=== PATIENT | female | born 1960 | race Caucasian/White ===

== ENCOUNTER 2017-07-07 12:30 | Inpatient (IN) ==
--- OUTSIDE RECORDS SUMMARY | 2017-07-07 14:17 | External Medical Summary | Continuity of Care Document ---
:1960 Author Organization [facility] Care Team Providers Name Role Phone Boone Chowdhury Unavailable Unavailable Insurance Providers Payer Name Policy Number Subscriber Name Relationship [facility] [id number] Zoila Ortiz 16 Self / Same As Patient Advance Directives Directive Response Recorded Date/Time Advanced Directives No 12/15/16 4:34pm Problems Active Problems Medical Problem Onset Date Status Abscessed tooth Unknown Acute Acute respiratory distress 12/07/2014 Acute Bradycardia Unknown Acute Chest pain Unknown Acute DKA (diabetic ketoacidoses) Unknown Acute Diabetes mellitus type 2, uncontrolled Unknown Acute Diabetes mellitus, type 2 12/07/2014 Acute Hyperglycemia 12/07/2014 Acute Hypertension Unknown Acute Hypokalemia 12/07/2014 Acute Hyponatremia 12/07/2014 Acute Hypoxia ~12/07/2014 Acute Influenza B ~12/06/2014 Acute Skin infection Unknown Acute Thyroid nodule Unknown Acute Medications Current Home Medications Medication Dose Units Route Directions Days/Qty Instructions Start Date Multivitamin 1 1 Tab ORAL Daily 09/29/16 Each Insulin Human 15 Unit SUBCUTANEOUS Twice Daily 1 10/06/16 Isoph/Insulin Before Meals Regular (Insulin Humulin 70/30) 100 Unit/1 Ml Amitriptyline Hcl 10 Mg ORAL Bedtime 11/15/16 10 Mg Aspirin 81 Mg 81 Mg ORAL Daily 11/15/16 Citalopram 40 Mg ORAL Daily 11/15/16 Hydrobromide 40 Mg Gabapentin 300 Mg ORAL Daily 11/15/16 (Neurontin) 300 Mg Triamterene/[place] 1 Cap ORAL Daily 11/15/16 chlorothiazid (Maxzide 37.5 Mg-25 Mg) 1 Each Metformin Hcl 500 Mg ORAL Daily 11/15/16 (Glucophage) 500 Mg Metoprolol 50 Mg ORAL Twice A Day 11/15/16 Tartrate (Lopressor) 50 Mg Trazodone Hcl 100 75 Mg ORAL Bedtime 11/15/16 Mg Empagliflozin 10 10 Mg ORAL Daily 11/26/16 Mg Lisinopril 30 Mg 30 Mg ORAL Twice A Day 11/26/16 Cephalexin 500 Mg 500 Mg ORAL Three Times A 21 12/06/16 Day Empagliflozin 25 25 Mg ORAL Daily 12/15/16 Mg Hydralazine Hcl 25 Mg ORAL Four Times 12/15/16 25 Mg Daily Pantoprazole 40 Mg ORAL As Directed 12/15/16 Sodium (Protonix) 40 Mg Amlodipine 10 Mg ORAL As Directed 12/15/16 Besylate 10 Mg Past Home Medications Medication Directions Ordered Status Metformin Hcl (Glucophage) 1,000 Mg Twice A Day 12/07/14 Discontinued Tablet, 1000 Mg Oral Ranitidine Hcl 300 Mg Tablet, 300 Daily for Reflux 12/07/14 Discontinued Mg Oral Metoprolol Tartrate 100 Mg Tablet, Twice A Day for Hypertension 12/07/14 Discontinued 100 Mg Oral [Insulin] , for Diabetic 12/07/14 Discontinued [Multivitamin] , 12/07/14 Discontinued Multivitamin 1 Each Tablet, 1 Each Daily 12/07/14 Discontinued Oral Insulin Human Isoph/Insulin Regular Twice A Day With Meals 12/09/14 Discontinued 100 Unit/1 Ml Vial, 30 Unit Subcutaneous Citalopram Hydrobromide (Celexa) 40 Daily 12/09/14 Discontinued Mg Tablet, 40 Mg Oral Amitriptyline Hcl 100 Mg Tablet, Bedtime 12/09/14 Discontinued 100 Mg Oral Hydrochlorothiazide 50 Mg Tablet, Daily 12/09/14 Discontinued 50 Mg Oral Acetaminophen (Tylenol) 325 Mg Tab, Every 6 Hours as needed for 12/10/14 Discontinued 650 Mg Oral Pain Ibuprofen (Motrin) 200 Mg Tablet, Every 6 Hours as needed for 12/10/14 Discontinued 600 Mg Oral Pain Oseltamivir Phosphate 75 Mg Cap, 75 Twice A Day 12/10/14 Discontinued Mg Oral Cephalexin 500 Mg Capsule, 500 Mg Three Times A Day 11/02/15 Discontinued Oral Hydrocodone Bit/Acetaminophen 1 Four Times Daily as needed 11/02/15 Discontinued Each Tablet, 1 Each Oral for Severe Pain Lisinopril (Zestril) 20 Mg Tablet, Daily 10/06/16 Discontinued 20 Mg Oral Ibuprofen (Motrin) 200 Mg Tablet, Three Times A Day as needed 10/06/16 Discontinued 600 Mg Oral for Pain Hydrocodone Bit/Acetaminophen 1 Every 6 Hours as needed for 10/06/16 Discontinued Each Tablet, 1 Each Oral Pain Canagliflozin 100 Mg Tablet, 100 Mg Daily 11/15/16 Discontinued Oral Social History Social History Problem Response Recorded Date/Time Onset Date Status Exposure to occupational hazards Yes 11/15/2016 5:01pm Query Response Start Date Stop Date Smoking Status Never smoker Hospital Discharge Instructions Current inpatient/outpatient. Discharge instructions are currently unavailable. Plan of Care Prescriptions Functional Status No functional status results. Allergies, Adverse Reactions, Alerts Allergen Type Severity Reaction Status Last Updated Penicillin Adverse Reaction Intermediate Active 09/28/16 Morphine Allergy Intermediate Active 09/28/16 Erythromycin base Adverse Reaction Intermediate Active 09/28/16 influenza virus vaccine, Adverse Reaction Intermediate Active 09/28/16 specific tuberculin, purified Allergy Mild Rash Active 09/28/16 protein deriva TEGADERM Adverse Reaction Intermediate Active 12/07/14 Immunizations No immunization records. Vital Signs Acute Vital Signs Vital Response Date/Time Temperature (Fahrenheit) 97.9 12/15/2016 4:34pm Pulse 75 bpm 12/15/2016 6:34pm Respirations 18 12/15/2016 6:34pm Results Laboratory Results Test Name Result Units Flags Reference Collection Result Comments Date/Time Date/Time White Blood Count 10.22 10^3uL 4.0-11.0 11/16/2016 11/16/2016 5:55am 6:06am Red Blood Count 4.62 10^6uL 4.00-5.00 11/16/2016 11/16/2016 5:55am 6:06am Hemoglobin 14.2 g/dL 12.0-15.5 11/16/2016 11/16/2016 5:55am 6:06am Hematocrit 41.00 % 35.00-45.00 11/16/2016 11/16/2016 5:55am 6:06am Mean Corpuscular 89 FL 80-100 11/16/2016 11/16/2016 Volume 5:55am 6:06am Mean Corpuscular 30.7 PG 26.0-34.0 11/16/2016 11/16/2016 Hemoglobin 5:55am 6:06am Mean Corpuscular 34.6 g/dL 31.0-37.0 11/16/2016 11/16/2016 Hemoglobin Concent 5:55am 6:06am Red Cell 13.1 % 11.8-15.6 11/16/2016 11/16/2016 Distribution Width 5:55am 6:06am Platelet Count 285 10^3uL 150-450 11/16/2016 11/16/2016 5:55am 6:06am Mean Platelet 9.4 FL 6.0-9.5 11/16/2016 11/16/2016 Volume 5:55am 6:06am Neutrophils (%) 52 % 51-67 11/16/2016 11/16/2016 (Auto) 5:55am 6:06am Lymphocytes (%) 32 % 20-46 11/16/2016 11/16/2016 (Auto) 5:55am 6:06am Monocytes (%) 9 % 3-11 11/16/2016 11/16/2016 (Auto) 5:55am 6:06am Eosinophils (%) 7 % H 0-4 11/16/2016 11/16/2016 (Auto) 5:55am 6:06am Basophils (%) 1 % 0-2 11/16/2016 11/16/2016 (Auto) 5:55am 6:06am Neutrophils # 5.3 X10^3 11/16/2016 11/16/2016 (Auto) 5:55am 6:06am Lymphocytes # 3.3 X10^3 11/16/2016 11/16/2016 (Auto) 5:55am 6:06am Monocytes # (Auto) 0.9 X10^3 11/16/2016 11/16/2016 5:55am 6:06am Eosinophils # 0.7 10^3uL 11/16/2016 11/16/2016 (Auto) 5:55am 6:06am Basophils # (Auto) 0.1 10^3uL 11/16/2016 11/16/2016 5:55am 6:06am Prothrombin Time 10.2 SEC 10.0-12.5 11/15/2016 11/15/2016 3:10pm 3:36pm Prothromb Time 0.9 0.8-1.4 11/15/2016 11/15/2016 International Ratio 3:10pm 3:36pm Activated Partial 30.3 SEC 26.3-36.8 11/15/2016 11/15/2016 Thromboplast Time 3:10pm 3:36pm D-Dimer < 215 ng/mL 0-500 11/15/2016 11/15/2016 3:10pm 3:36pm Sodium Level 137 mmol/L 135-150 11/16/2016 11/16/2016 5:55am 6:37am Potassium Level 4.8 mmol/L 3.5-5.1 11/16/2016 11/16/2016 5:55am 6:37am Chloride Level 104 mmol/L 98-108 11/16/2016 11/16/2016 5:55am 6:37am Carbon Dioxide 29 mmol/L 22-29 11/16/2016 11/16/2016 Level 5:55am 6:37am Anion Gap 9.5 MEQ/L 3-15 11/16/2016 11/16/2016 5:55am 6:37am Blood Urea Nitrogen 16 mg/dL 7-18 11/16/2016 11/16/2016 5:55am 6:37am Creatinine 0.54 mg/dL L 0.6-1.2 11/16/2016 11/16/2016 5:55am 6:37am BUN/Creatinine 30 H 10-20 11/16/2016 11/16/2016 Ratio 5:55am 6:37am Estimat Glomerular 140.3 11/16/2016 11/16/2016 Filtration Rate 5:55am 6:37am Estimated GFR 116.0 11/16/2016 11/16/2016 (Non- 5:55am 6:37am Fijian Glucose Level 148 mg/dL H 70-110 11/16/2016 11/16/2016 5:55am 6:37am Calculated 270 mosm/L L 280-300 11/16/2016 11/16/2016 Osmolality 5:55am 6:37am Calcium Level 10.0 mg/dL 8.8-10.8 11/16/2016 11/16/2016 5:55am 6:37am Calcium/Ionized 4.5 mg/dL 3.8-4.6 11/16/2016 11/16/2016 Calcium Ratio 5:55am 6:37am Total Bilirubin 0.7 mg/dL 0.1-1.0 11/16/2016 11/16/2016 5:55am 6:37am Alkaline 117 U/L 38-126 11/16/2016 11/16/2016 Phosphatase 5:55am 6:37am Aspartate Amino 31 U/L 15-37 11/16/2016 11/16/2016 Transf (AST/SGOT) 5:55am 6:37am Alanine 43 U/L 30-65 11/16/2016 11/16/2016 Aminotransferase 5:55am 6:37am (ALT/SGPT) Total Creatine 32 U/L 30-135 11/15/2016 11/15/2016 Kinase 3:10pm 3:29pm Creatine Kinase MB 1.2 ng/mL 0.0-6.0 11/15/2016 11/15/2016 3:10pm 3:41pm Troponin I < ng/mL 0.010-0.080 11/16/2016 11/16/2016 0.012 5:55am 6:49am TB-Jhg-F-Type 79 pg/mL 0-125 11/15/2016 11/15/2016 Natriuretic Peptide 3:10pm 3:41pm <300 ng/mL - HF unlikely Age <50 years, NT-proBNP >450 pg/mL - HF Likely Age 50-75 yrs, NT-proBNP >900 pg/mL - HF Likely Age >75 yrs, NT-proBNP >1800 - HF likely Total Protein 6.9 g/dL 6.4-8.5 11/16/2016 11/16/2016 5:55am 6:37am Albumin 3.6 g/dL 3.4-5.0 11/16/2016 11/16/2016 5:55am 6:37am Albumin/Globulin 1.090 L 1.1-1.8 11/16/2016 11/16/2016 Ratio 5:55am 6:37am Pending Laboratory Results Test Name Collection Date/Time Procedures Procedure Status Date Provider(s) ROUTINE VENIPUNCTURE Completed 11/15/16 ROUTINE VENIPUNCTURE Completed 11/15/16 CHEST X-RAY 1 VIEW FRONTAL Completed 11/15/16 COMPREHEN METABOLIC PANEL Completed 11/15/16 COMPREHEN METABOLIC PANEL Completed 11/15/16 DRUG TEST PRSMV CHEM ANLYZR Completed 11/15/16 ASSAY OF CK (CPK) Completed 11/15/16 CREATINE MB FRACTION Completed 11/15/16 ASSAY OF NATRIURETIC PEPTIDE Completed 11/15/16 ASSAY OF TROPONIN QUANT Completed 11/15/16 ASSAY OF TROPONIN QUANT Completed 11/15/16 COMPLETE CBC W/AUTO DIFF WBC Completed 11/15/16 COMPLETE CBC W/AUTO DIFF WBC Completed 11/15/16 FIBRIN DEGRADATION QUANT Completed 11/15/16 PROTHROMBIN TIME Completed 11/15/16 THROMBOPLASTIN TIME PARTIAL Completed 11/15/16 ELECTROCARDIOGRAM TRACING Completed 11/15/16 ELECTROCARDIOGRAM TRACING Completed 11/15/16 THER/PROPH/DIAG INJ IV PUSH Completed 11/15/16 EMERGENCY DEPT VISIT Completed 11/15/16 Completed 11/15/16 Completed 11/15/16 Completed 11/15/16 Encounters Encounter Location Arrival/Admit Date Discharge/Depart Date Attending Provider Registered [place] [facility] Departed [place] 12/15/16 4:31pm 12/15/16 6:40pm [facility] MORENA Posadas MD Registered Manny 12/13/16 1:45pm JESSICA BROWN [facility] [place] Registered [place] 12/06/16 3:13pm WARREN ISBELL [facility] Katharina KRISHNAMURTHY Departed [place] 11/26/16 8:20am 11/26/16 10:28am [facility] TOR Juárez DO Discharged [place] 11/15/16 4:45pm 11/16/16 10:28am [facility] Jeanmarie Garcia MD
--- OUTSIDE RECORDS SUMMARY | 2017-07-07 14:17 | External Medical Summary | Continuity of Care Document ---
:1960 Author Organization [facility] Care Team Providers Name Role Phone Boone Chowdhury Unavailable Unavailable Insurance Providers Payer Name Policy Number Subscriber Name Relationship [facility] [id number] Zoila Ortiz 16 Self / Same As Patient Advance Directives Directive Response Recorded Date/Time Advanced Directives No 11/26/16 8:30am Chief Complaint and Reason for Visit Chief Complaint Cardiac Complaint Reason for Visit Bradycardia Problems Active Problems Medical Problem Onset Date Status Abscessed tooth Unknown Acute Acute respiratory distress 12/07/2014 Acute Bradycardia Unknown Acute Chest pain Unknown Acute DKA (diabetic ketoacidoses) Unknown Acute Diabetes mellitus type 2, uncontrolled Unknown Acute Diabetes mellitus, type 2 12/07/2014 Acute Hyperglycemia 12/07/2014 Acute Hypertension Unknown Acute Hypokalemia 12/07/2014 Acute Hyponatremia 12/07/2014 Acute Hypoxia ~12/07/2014 Acute Influenza B ~12/06/2014 Acute Thyroid nodule Unknown Acute Medications Current [...] Mg ORAL Daily 11/15/16 (Neurontin) 300 Mg Triamterene/[place] 1 Cap ORAL Daily 11/15/16 chlorothiazid (Maxzide 37.5 Mg-25 Mg) 1 Each Metformin Hcl 500 Mg ORAL Daily 11/15/16 (Glucophage) 500 Mg Metoprolol 50 Mg ORAL Twice A Day 11/15/16 Tartrate (Lopressor) 50 Mg Trazodone Hcl 100 75 Mg ORAL Bedtime 11/15/16 Mg Empagliflozin 10 10 Mg ORAL Daily 11/26/16 Mg Lisinopril 30 Mg 30 Mg ORAL Twice A Day 11/26/16 Past Home Medications Medication Directions Ordered Status [...] Smoking Status Never smoker Hospital Discharge Instructions No hospital discharge instructions. Plan of Care Discharge Date 11/26/16 10:28am Disposition 02 XFER SHT-TRM HOSP - ACUTE Condition at Discharge Transfer Prescriptions See Medication Section Referrals [facility] - Additional Instructions/Education Some of your test results may not be complete prior to your leaving the Emergency Department. The Emergency Department is not authorized to give test results over the phone. Please contact the doctor's office listed in this packet of information for your final results. Follow up with your primary care physician or return to the Emergency Department for worsening or worrisome symptoms. * Emergency Department phone number: [phone], x [phone]* MEDICAL RECORD If you need copies of your X-rays, call [phone]. If you need copies of your medical record, including lab results, a signed authorization for release of records will be required. A telephone call for release of Health Information is not allowed. BILLING Billing can sometimes be confusing and frustrating. To help avoid confusion in the future, please take a moment to acquaint yourself with the billing parties for services. [employer] Emergency Room Services [facility] Physician Services [facility] X-rays [facility] Patients will receive bills for services from the appropriate provider. If you have any questions about your [facility] bill, our staff will be happy to assist you. Please call [phone], and ask for the billing department. THANK YOU for choosing [facility] as your emergency care provider! Care Plan and Goals ~~Discharge Care Plan~~ Problem: Chest, epigastric or chest wall pain Goal: Decreased pain Instructions: Take medication(s) as directed. Follow home discharge instructions. Follow up with primary care physician or kettle skimmer as directed. Functional Status No functional status results. Allergies, [...] Vital Signs Vital Response Date/Time Temperature (Fahrenheit) 97.3 11/26/2016 5:17pm Pulse 68 bpm 11/26/2016 5:17pm Respirations 10 11/26/2016 5:17pm Height 4 ft 11 in Weight 138 lb Body Mass Index 28.0 kg/m^2 Results Pending Laboratory Results Test Name Collection Date/Time Procedures Procedure Status Date Provider(s) Completed 11/02/16 ROUTINE VENIPUNCTURE Completed 11/15/16 ROUTINE VENIPUNCTURE Completed [...] Location Arrival/Admit Date Discharge/Depart Date Attending Provider Departed Manny 11/26/16 8:20am 11/26/16 10:28am [facility] TOR Marquita GALLAGHER Discharged [place] 11/15/16 4:45pm 11/16/16 10:28am [facility] Jeanmarie Garcia MD Registered [place] 11/02/16 7:01am [facility] Recent Diagnosis
--- OUTSIDE RECORDS SUMMARY | 2017-07-07 14:18 | External Medical Summary | Continuity of Care Document ---
:1960 Author Organization [facility] Care Team Providers Name Role Phone Boone Chowdhury Unavailable Unavailable Insurance Providers Payer Name Policy Number Subscriber Name Relationship [facility] [id number] Zoila Ortiz 16 Self / Same As Patient Advance Directives Directive Response Recorded Date/Time Advanced Directives No 11/02/15 2:25am Chief Complaint and Reason for Visit Chief Complaint Skin Condition Reason for Visit [id number] Problems Active Problems Medical Problem Onset Date Status Abscessed tooth Unknown Acute Acute respiratory distress 12/07/2014 Acute Diabetes mellitus, type 2 12/07/2014 Acute Hyperglycemia 12/07/2014 Acute Hypokalemia 12/07/2014 Acute Hyponatremia 12/07/2014 Acute Hypoxia ~12/07/2014 Acute Influenza B ~12/06/2014 Acute Medications Current Home Medications Medication Dose Units Route Directions Days/Qty Instructions Start Date Metformin Hcl 1,000 Mg ORAL Twice A Day 12/07/ (Glucophage) 1,000 15 Mg Ranitidine Hcl 300 300 Mg ORAL Daily for 12/07/ Mg Reflux 15 Metoprolol Tartrate 100 Mg ORAL Twice A Day 12/07/ 100 Mg for 15 Hypertension Multivitamin 1 Each 1 Each ORAL Daily Hum Insulin Nph/Reg 30 Unit SUBCUTANEOUS Twice A Day 12/09/ Insulin Hm 100 With Meals 15 Unit/1 Ml Citalopram 40 Mg ORAL Daily 12/09/ Hydrobromide 15 (Celexa) 40 Mg Amitriptyline Hcl 100 Mg ORAL Bedtime 12/09/ 100 Mg 15 Hydrochlorothiazide 50 Mg ORAL Daily 12/09/ 50 Mg 15 Acetaminophen 650 Mg ORAL Every 6 Hours 0 12/10/ (Tylenol) 325 Mg as needed for 15 Pain Ibuprofen (Motrin) 600 Mg ORAL Every 6 Hours 0 12/10/ 200 Mg as needed for 15 Pain Oseltamivir 75 Mg ORAL Twice A Day 3 12/10/ Phosphate 75 Mg 15 Cephalexin 500 Mg 500 Mg ORAL Three Times A 10 Days 11/02/ Day 16 Hydrocodone 1 Each ORAL Four Times 15 11/02/ Bit/Acetaminophen 1 Daily as 16 Each needed for Severe Pain Past Home Medications Medication Directions Ordered Status [Insulin] , for Diabetic 12/07/14 Discontinued [Multivitamin] , 12/07/14 Discontinued Social History Social History Problem Response Recorded Date/Time Onset Date Status Exposure to occupational hazards Yes 12/07/2014 4:40am Query Response Start Date Stop Date Smoking Status Never smoker Hospital Discharge Instructions No hospital discharge instructions. Plan of Care Discharge Date 11/02/15 3:01am Disposition 01 HOME OR SELF-CARE Condition at Discharge Stable Instructions/Education Provided Dental Abscess (ED) Prescriptions See Medication Section Referrals Boone Chowdhury - Additional Instructions/Education Keflex 500mg as Rx'd, three times a day for 10 days. OTC Ibuprofen 400mg every 8 hours with food as needed, as main pain med. Hydrocodone 5's as Dispensed / Rx'd, as needed for severe pain. Continue dental hygiene. See PCP or Dentist jennifer. Some of your test results may not [...] worrisome symptoms. * Emergency Department phone number: [phone], x [phone]* MEDICAL RECORD If you need copies of your X-rays, call [phone]. If you need copies of [...] the billing parties for services. [employer] Emergency Room Services [facility] Physician Services [facility] X-rays [place] [facility] Patients will receive bills for services from the appropriate provider. If you have any questions about your [facility] bill, our staff will be happy to assist you. Please call [phone], and ask for the billing department. THANK YOU for choosing [facility] as your emergency care provider! Care Plan and Goals ~~Discharge Care Plan~~ Problem: Fractured tooth, abscess, or dental caries Goal: Decreased pain. Dental repair/extraction is completed by dentist. Instructions: Practice good oral hygiene. Take medications as prescribed. Follow up with your dentist as directed. Functional Status No functional status results. Allergies, Adverse Reactions, Alerts Allergen Type Severity Reaction Status Last Updated Penicillin Adverse Reaction Intermediate Active 12/07/14 Morphine Allergy Intermediate Active 12/07/14 Erythromycin base Adverse Reaction Intermediate Active 12/07/14 influenza virus Adverse Reaction Intermediate Active 12/07/14 vacc,specific TEGADERM Adverse Reaction Intermediate Active 12/07/14 Immunizations No immunization records. Vital Signs Acute Vital Signs Vital Response Date/Time Temperature (Fahrenheit) 97.7 11/02/2015 3:00am Pulse 74 bpm 11/02/2015 3:00am Respirations 20 11/02/2015 3:00am Height 5 ft 0 in Weight 189 lb Body Mass Index 36.0 kg/m^2 Results No known relevant diagnostic tests, laboratory data and/or discharge summary. Procedures No known history of procedures. Encounters Encounter Location Arrival/Admit Date Discharge/Depart Date Attending Provider Departed [place] 11/02/15 2:04am 11/02/15 3:01am [facility] Emergency Room [facility] ELIZABETH Mcnair MD Recent Diagnosis
--- OUTSIDE RECORDS SUMMARY | 2017-07-07 14:18 | External Medical Summary | Continuity of Care Document ---
:1960 Author Organization [facility] Care Team Providers Name Role Phone Boone Chowdhury Unavailable Unavailable Insurance Providers Payer Name Policy Number Subscriber Name Relationship [facility] [id number] Zoila Ortiz 16 Self / Same As Patient Advance Directives Directive Response Recorded Date/Time Advanced Directives No 09/29/16 2:40am Chief Complaint and Reason for Visit Chief Complaint XIPHOID MASS Reason for Visit Hyponatremia Hypoxia Influenza B Thyroid nodule Problems Active Problems Medical Problem Onset Date Status Abscessed tooth Unknown Acute Acute respiratory distress 12/07/2014 Acute DKA (diabetic ketoacidoses) Unknown Acute Diabetes mellitus type 2, uncontrolled Unknown Acute Diabetes mellitus, type 2 12/07/2014 Acute Hyperglycemia 12/07/2014 Acute Hypertension Unknown Acute Hypokalemia 12/07/2014 Acute Hyponatremia 12/07/2014 Acute Hypoxia ~12/07/2014 Acute Influenza B ~12/06/2014 Acute Thyroid nodule Unknown Acute Medications Current Home Medications Medication Dose Units Route Directions Days/Qty Instructions Start Date Multivitamin 1 1 Tab ORAL Daily 09/29/16 Each Lisinopril 20 Mg ORAL Daily 3 10/06/16 (Zestril) 20 Mg Ibuprofen 600 Mg ORAL Three Times A 0 10/06/16 (Motrin) 200 Mg Day as needed for Pain Hydrocodone 1 Each ORAL Every 6 Hours 15 10/06/16 Bit/Acetaminophe as needed for n 1 Each Pain Insulin Human 15 Unit SUBCUTANEOUS Twice Daily 1 10/06/16 Isoph/Insulin Before Meals Regular (Insulin Humulin 70/30) 100 Unit/1 Ml Past Home Medications Medication Directions Ordered Status [...] Tablet, 1 Each Oral for Severe Pain Social History Social History Problem Response Recorded Date/Time Onset Date Status Exposure to occupational hazards Yes 09/29/2016 2:40am Query Response Start Date Stop Date Smoking Status Never smoker Hospital Discharge Instructions Patient's Instructions Instructions Instructions * You were evaluated and treated for diabetic ketoacidosis, a severe complication of untreated diabetes. Review the provided handouts for details. It is important that you resume use of insulin to control your blood glucose. Insulin 70/30 was prescribed, to be taken twice daily. Monitor your blood sugar readings at home and record them at least 3 times daily for review by your primary care doctor. He will adjust your diabetes medication as needed. * You may have had a viral gastroenteritis. This seems to be resolving. Drink plenty of fluids. * You were found to have a thyroid nodule that needs further evaluation. A thyroid ultrasound is recommended. The result can be sent to your primary care doctor who can recommend further workup if needed. * A mass of tissue was identified on your breastbone and this was removed surgically. Keep the wound clean and dry. Cover with gauze. Change daily. You may shower, but do not take baths until instructed by surgery. The pathology report for this mass will be reviewed with you when you follow up with surgery. * For high blood pressure, lisinopril has been started. Review the provided handout for details. Your primary care doctor can adjust your blood pressure regimen further if needed. * For pain, you may continue to take ibuprofen as directed. A short course of hydrocodone/acetaminophen has also been prescribed. Activity Instructions As tolerated. You may return to work 10/08 without restriction. Doctor's Appointment Follow-up with Dr. Farley in surgery clinic in 1 week. Follow-up with your primary care doctor in 3-5 days. Discharge Diet: Carbohydrate controlled Discharge Plan of Care Discharge Plan of Care #1 Problem: Pain Goal: Prevention post infection Instructions for meeting goal: follow all instructions Plan of Care Discharge Date 10/06/16 12:49pm Disposition 01 HOME OR SELF-CARE Instructions/Education Provided Hydrocodone and Acetaminophen Lisinopril Insulin NPH and Insulin Regular Insulin Injection Blood Glucose Monitoring Diabetes Type 2 (DC) Diabetic Ketoacidosis (DC) Prescriptions See Medication Section Follow-up Orders US THYROID Care Plan and Goals See Discharge Instructions Section Functional Status Query Response Date Recorded Level of Conscious Alert October 06, 2016 7:51am Oriented x4 Movement Moves extremities October 06, 2016 7:51am 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 Allergies, Adverse Reactions, Alerts Allergen Type Severity [...] Vital Signs Vital Response Date/Time Temperature (Fahrenheit) 97.0 10/06/2016 8:05am Pulse 66 bpm 10/06/2016 12:12pm Respirations 18 10/06/2016 8:05am Height 4 ft 11 in Weight 144 lb Body Mass Index 29.0 kg/m^2 Results Laboratory Results Test Name Result Units Flags Reference Collection Result Comments Date/Time Date/Time White Blood Count 10.43 10^3uL 4.0-11.0 10/06/2016 10/06/2016 5:45am 6:12am Red Blood Count 4.28 10^6uL 4.00-5.00 10/06/2016 10/06/2016 5:45am 6:12am Hemoglobin 12.9 g/dL 12.0-15.5 10/06/2016 10/06/2016 5:45am 6:12am Hematocrit 37.70 % 35.00-45.0 10/06/2016 10/06/2016 0 5:45am 6:12am Mean Corpuscular 88 FL 80-100 10/06/2016 10/06/2016 Volume 5:45am 6:12am Mean Corpuscular 30.1 PG 26.0-34.0 10/06/2016 10/06/2016 Hemoglobin 5:45am 6:12am Mean Corpuscular 34.2 g/dL 31.0-37.0 10/06/2016 10/06/2016 Hemoglobin Concent 5:45am 6:12am Red Cell 12.4 % 11.8-15.6 10/06/2016 10/06/2016 Distribution Width 5:45am 6:12am Platelet Count 290 10^3uL # 150-450 10/06/2016 10/06/2016 5:45am 6:12am Mean Platelet 9.5 FL 6.0-9.5 10/06/2016 10/06/2016 Volume 5:45am 6:12am Neutrophils (%) 52 % 51-67 10/06/2016 10/06/2016 (Auto) 5:45am 6:12am Lymphocytes (%) 34 % 20-46 10/06/2016 10/06/2016 (Auto) 5:45am 6:12am Monocytes (%) 10 % 3-11 10/06/2016 10/06/2016 (Auto) 5:45am 6:12am Eosinophils (%) 3 % 0-4 10/06/2016 10/06/2016 (Auto) 5:45am 6:12am Basophils (%) 0 % 0-2 10/06/2016 10/06/2016 (Auto) 5:45am 6:12am Neutrophils # 5.5 X10^3 10/06/2016 10/06/2016 (Auto) 5:45am 6:12am Lymphocytes # 3.5 X10^3 10/06/2016 10/06/2016 (Auto) 5:45am 6:12am Monocytes # (Auto) 1.1 X10^3 10/06/2016 10/06/2016 5:45am 6:12am Eosinophils # 0.3 10^3uL 10/06/2016 10/06/2016 (Auto) 5:45am 6:12am Basophils # (Auto) 0.0 10^3uL 10/06/2016 10/06/2016 5:45am 6:12am Differential Total 100 10/01/2016 10/01/2016 Cells Counted 5:50am 6:40am Segmented 49 % L 51-67 10/01/2016 10/01/2016 Neutrophils % 5:50am 6:40am Band Neutrophils % 0 % 0-6 10/01/2016 10/01/2016 5:50am 6:40am Lymphocytes % 34 % 20-46 10/01/2016 10/01/2016 (Manual) 5:50am 6:40am Monocytes % 13 % H 3-11 10/01/2016 10/01/2016 (Manual) 5:50am 6:40am Eosinophils % 1 % 0-4 10/01/2016 10/01/2016 (Manual) 5:50am 6:40am Basophils % 0 % 0-2 10/01/2016 10/01/2016 (Manual) 5:50am 6:40am Neutrophils # 2.7 # 10/01/2016 10/01/2016 5:50am 6:40am Absolute Band 0.0 # 10/01/2016 10/01/2016 Neutrophils 5:50am 6:40am Lymphocytes # 1.8 # 10/01/2016 10/01/2016 5:50am 6:40am Monocytes # 0.7 # 10/01/2016 10/01/2016 5:50am 6:40am Eosinophils # 0.1 # 10/01/2016 10/01/2016 5:50am 6:40am Basophils # 0.0 # 10/01/2016 10/01/2016 (Manual) 5:50am 6:40am Atypical 3 % <1 10/01/2016 10/01/2016 Lymphocytes 5:50am 6:40am Blood Morphology NORMAL NORMAL 10/01/2016 10/01/2016 Comment 5:50am 6:40am Volume Urine 10 mL 09/28/2016 09/29/2016 Centrifuged 11:20pm 12:26am Urine Collection CLEAN 09/28/2016 09/29/2016 Type CATCH 11:20pm 12:26am Urine Color Yellow 09/28/2016 09/28/2016 11:20pm 11:52pm Urine Clarity Clear 09/28/2016 09/28/2016 11:20pm 11:52pm Urine pH 5.0 5.0 - 8.0 09/28/2016 09/28/2016 11:20pm 11:52pm Urine Specific 1.010 1.005-1.03 09/28/2016 09/28/2016 [place] 0 11:20pm 11:52pm Urine Protein 2+ H Negative 09/28/2016 09/28/2016 11:20pm 11:52pm Urine Glucose (UA) 2+ H Negative 09/28/2016 09/28/2016 11:20pm 11:52pm Urine Blood Trace-lawanda H Negative 09/28/2016 09/28/2016 ed 11:20pm 11:52pm Urine Ketones 2+ H Negative 09/28/2016 09/28/2016 11:20pm 11:52pm Urine Nitrite Negative Negative 09/28/2016 09/28/2016 11:20pm 11:52pm Urine Bilirubin 2+ H Negative 09/28/2016 09/28/2016 [place], [place] metabolite and atypical colors january 11:20pm 11:52pm interfere with the interpretation of the Bilirubin reaction. Further testing is required for confirmation. Urine Urobilinogen 0.2 mg/dL 0.2-1.0 09/28/2016 09/28/2016 11:20pm 11:52pm Urine Leukocyte Negative Negative 09/28/2016 09/28/2016 Esterase 11:20pm 11:52pm Urine Microscopic 2-5 /HPF 09/28/2016 09/29/2016 RBC 11:20pm 12:26am Urine WBC 5-10 /HPF H 09/28/2016 09/29/2016 11:20pm 12:26am Urine Bacteria 1+ /HPF 09/28/2016 09/29/2016 11:20pm 12:26am Urine Squamous TNTC /LPF 09/28/2016 09/29/2016 --- 09/29/16 0641 --- Epithelial Cells 11:20pm 6:41am UR SQUAM EPI previously reported as: TNTC /LPF Specimen QNS for culture as well as suspect urogenital contamination. Suggest recollect clean catch for culture. Urine Yeast 1+ 09/28/2016 09/29/2016 11:20pm 12:26am Sodium Level 141 mmol/L 135-150 10/06/2016 10/06/2016 5:45am 6:36am Potassium Level 3.9 mmol/L 3.5-5.1 10/06/2016 10/06/2016 5:45am 6:36am Chloride Level 104 mmol/L 98-108 10/06/2016 10/06/2016 5:45am 6:36am Carbon Dioxide 31 mmol/L H 22-29 10/06/2016 10/06/2016 Level 5:45am 6:36am Anion Gap 10.3 MEQ/L 3-15 10/06/2016 10/06/2016 5:45am 6:36am Blood Urea 8 mg/dL 7-18 10/06/2016 10/06/2016 Nitrogen 5:45am 6:36am Creatinine 0.44 mg/dL L 0.6-1.2 10/06/2016 10/06/2016 5:45am 6:36am BUN/Creatinine 31 H 10-20 09/28/2016 09/29/2016 Ratio 11:34pm 12:07am Estimat Glomerular 178.3 10/06/2016 10/06/2016 Filtration Rate 5:45am 6:36am Estimated GFR 147.4 10/06/2016 10/06/2016 (Non- 5:45am 6:36am Macanese Glucose Level 185 mg/dL H 70-110 10/06/2016 10/06/2016 5:45am 6:36am Calculated 308 mosm/L H 280-300 09/28/2016 09/29/2016 Osmolality 11:34pm 12:07am Calcium Level 9.5 mg/dL 8.8-10.8 10/06/2016 10/06/2016 5:45am 6:36am Calcium/Ionized 4.4 mg/dL 3.8-4.6 09/28/2016 09/29/2016 Calcium Ratio 11:34pm 12:07am Phosphorus Level 4.3 mg/dL # 2.4-4.9 10/06/2016 10/06/2016 5:45am 6:36am Magnesium Level 1.8 mg/dL 1.6-2.3 10/06/2016 10/06/2016 5:45am 6:36am Total Bilirubin 0.7 mg/dL # 0.1-1.0 09/28/2016 09/29/2016 11:34pm 12:07am Alkaline 155 U/L H 38-126 09/28/2016 09/29/2016 Phosphatase 11:34pm 12:07am Aspartate Amino 34 U/L 15-37 09/28/2016 09/29/2016 Transf (AST/SGOT) 11:34pm 12:07am Alanine 60 U/L 30-65 09/28/2016 09/29/2016 Aminotransferase 11:34pm 12:07am (ALT/SGPT) Troponin I < ng/mL 0.010-0.08 10/04/2016 10/04/2016 0.012 0 6:07pm 6:48pm Total Protein 6.6 g/dL 6.4-8.5 09/28/2016 09/29/2016 11:34pm 12:07am Albumin 2.8 g/dL L 3.4-5.0 10/06/2016 10/06/2016 5:45am 6:36am Albumin/Globulin 1.200 1.1-1.8 09/28/2016 09/29/2016 Ratio 11:34pm 12:07am Amylase Level 31 U/L 25-115 09/28/2016 09/29/2016 11:34pm 12:07am Lipase 62 U/L 23-300 10/01/2016 10/01/2016 5:50am 5:02pm Thyroid 1.50 uIU/mL 0.46-4.68 09/29/2016 09/29/2016 Stimulating 4:38am 8:44am Hormone (TSH) Hemoglobin A1c > 14.0 % H 4.0-6.0 09/29/2016 09/29/2016 4:38am 6:07am Cholesterol Level 118 mg/dL 50-200 09/30/2016 09/30/2016 5:45am 7:05am HDL Cholesterol 25 mg/dL L 40-60 09/30/2016 09/30/2016 5:45am 7:05am Triglycerides 118 mg/dL 10-150 09/30/2016 09/30/2016 Level 5:45am 7:05am LDL Cholesterol, 69 mg/dL 50-130 09/30/2016 09/30/2016 Calculated 5:45am 7:05am VLDL Cholesterol, 24 mg/dL 4.00-40.00 09/30/2016 09/30/2016 Calculated 5:45am 7:05am Cholesterol/HDL 4.7 0.0-5.0 09/30/2016 09/30/2016 Ratio 5:45am 7:05am Arterial Blood pH 7.46 H 7.35-7.45 09/29/2016 09/29/2016 All ABG Results called to Dr Maxwell 12:15am 12:50am who read back the results. Called by Corby Dowell at 0049 Arterial Blood 24 mmHg L 35-45 09/29/2016 09/29/2016 Partial Pressure 12:15am 12:50am CO2 Arterial Blood 93 mmHg 80-105 09/29/2016 09/29/2016 Partial Pressure 12:15am 12:50am O2 Arterial Blood 16.8 MEQ/L L 22.0-26.0 09/29/2016 09/29/2016 HCO3 12:15am 12:50am Arterial Blood 17.0 HELEN/L L 23.0-27.0 09/29/2016 09/29/2016 Total CO2 12:15am 12:50am Arterial Blood -7.0 L -2.0-3.0 09/29/2016 09/29/2016 Base Excess 12:15am 12:50am Arterial Blood 98 % 95-98 09/29/2016 09/29/2016 Oxygen Saturation 12:15am 12:50am Blood Gas Puncture RIGHT 09/29/2016 09/29/2016 Site RADIAL 12:15am 12:50am Álvaro Test Pos 09/29/2016 09/29/2016 12:15am 12:50am FiO2 % 21.0 % 09/29/2016 09/29/2016 12:15am 12:50am Procedures No known history of procedures. Encounters Encounter Location Arrival/Admit Date Discharge/Depart Date Attending Provider Discharged Bryant 09/29/16 1:23am 10/06/16 12:49pm [facility] AGUSTIN Salgado MD Recent Diagnosis Hyponatremia Hypoxia Influenza B Thyroid nodule
--- OUTSIDE RECORDS SUMMARY | 2017-07-07 14:18 | External Medical Summary | Continuity of Care Document ---
:1960 Author Organization [facility] Care Team Providers Name Role Phone TrentonBoone Poppy Unavailable Unavailable Insurance Providers Payer Name Policy Number Subscriber Name Relationship [facility] [id number] Zoila Ortiz 16 Self / Same As Patient Chief Complaint and Reason for Visit Chief Complaint INFLUENZA B/ HYPOXIA Reason for Visit Hypoxia Influenza B Acute respiratory distress Hyperglycemia Diabetes mellitus, type 2 Hyponatremia Hypokalemia Problems Medical Problems Problem Onset Date Status Hypoxia ~12/07/2014 Active Influenza B ~12/06/2014 Active Acute respiratory distress 12/07/2014 Active Hyperglycemia 12/07/2014 Active Diabetes mellitus, type 2 12/07/2014 Active Hyponatremia 12/07/2014 Active Hypokalemia 12/07/2014 Active Medications Medication Dose Route Sig Days/Qty Instructions Order Discontinued Status Date Date Metformin Hcl 1,000 ORAL TWICE A 12/07/ Active Mg DAY 15 Ranitidine Hcl 300 ORAL DAILY 12/07/ Active Mg For 15 reflux Metoprolol 100 ORAL TWICE A 12/07/ Active Tartrate Mg DAY For 15 hyperte nsion [Insulin] For 12/07/ 12/09/14 Discontin Diabeti 15 ued c [Multivitamin] 12/07/ 12/07/14 Discontin 15 ued Multivitamin 1 ORAL DAILY 12/07/ Active Each 15 Hum Insulin 30 SUBCUTANE TWICE A 12/09/ Active Nph/Reg Unit OUS DAY 15 Insulin Hm WITH MEALS Citalopram 40 Mg ORAL DAILY 12/09/ Active Hydrobromide 15 (Celexa) Amitriptyline 100 ORAL BEDTIME 12/09/ Active Hcl Mg 15 Hydrochlorothi 50 Mg ORAL DAILY 12/09/ Active azide 15 Acetaminophen 650 ORAL EVERY 6 0 Qty 12/10/ Active (Tylenol) Mg HOURS 15 PRN PAIN Ibuprofen 600 ORAL EVERY 6 0 Qty 12/10/ Active (Motrin) Mg HOURS 15 PRN PAIN Oseltamivir 75 Mg ORAL TWICE A 3 Qty 12/10/ Active Phosphate DAY 15 Social History No social history. Hospital Discharge Instructions Patient's Instructions Instructions Instructions * During this hospitalization you were treated for influenza B, a variant that has been quite common this flu season. Complete your course of oseltamivir (Tamiflu) at home. You will need three more doses. * To avoid spreading flu to others, observe good respiratory and hand hygiene. Cover your cough and perform frequent hand washing. * For headache and myalgias, it is ok to take ibuprofen and/or tylenol. * Thank you for the opportunity to participate in your care! Please call with questions or concerns: [phone]. Activity Instructions As tolerated. OK to return to work 12/16/2014. Doctor's Appointment Follow-up with your primary care doctor in 3-5 days. Discharge Diet: Carbohydrate controlled Orders DISCHARGE: Discharge to:: HOME Home, Self Care Discharge Plan of Care Discharge Plan of Care #1 Problem: Influezna B Goal: Instructions for meeting goal: Plan of Care Discharge Date 12/10/14 10:35am Disposition 01 HOME OR SELF-CARE Instructions/Education Provided Oseltamivir (By mouth) Influenza (DC) Forms Provided Return to Work Prescriptions See Medications Section Referrals Boone Chowdhury ([facility]) Within 1 week Address: [address] [place], [place] [address] Functional Status No functional status results. Allergies, Adverse Reactions, Alerts Allergen Type Severity Reaction Status Last Updated Penicillin Adverse Reaction Intermediate Active 12/07/14 Morphine Allergy Intermediate Active 12/07/14 Erythromycin base Adverse Reaction Intermediate Active 12/07/14 influenza virus Adverse Reaction Intermediate Active 12/07/14 vacc,specific TEGADERM Adverse Reaction Intermediate Active 12/07/14 Immunizations No immunization records. Vital Signs Acute Vital Signs Vital Response Date/Time Temperature (Fahrenheit) 98.3 Pulse 62 bpm Respirations 16 Height 5 ft 0 in Weight 189 lb Body Mass Index 36.9 kg/m^2 Results Test Source Date Result Interp. Ref. Range Comments Urine Squamous December 09, 10-20 /LPF Epithelial Cells 2014 11:30am Urine Bacteria December 09, Rare /HPF 2014 11:30am Urine WBC December 09, 5-10 /HPF H 2014 11:30am Urine RBC December 09, 5-10 /HPF H 2014 11:30am Urine Collection December 09, Clean catch Type 2014 11:30am Volume Urine December 09, 10 ml Centrifuged 2014 11:30am Urine Leukocyte December 09, Trace H Negative Esterase 2014 11:30am Urine Urobilinogen December 09, 0.2 mg/dL 0.2-1.0 2014 11:30am Urine Bilirubin December 09, Negative Negative 2014 11:30am Urine Nitrite December 09, Negative Negative 2014 11:30am Urine Ketones December 09, 1+ H Negative 2014 11:30am Urine RBC (Auto) December 09, 2+ H Negative 2014 11:30am Urine Glucose (UA) December 09, 2+ H Negative 2014 11:30am Urine Protein December 09, Negative Negative 2014 11:30am Urine Specific December 09, 1.010 1.005-1.030 [place] 2014 11:30am Urine pH December 09, 6.0 5.0 - 8.0 2014 11:30am Urine Clarity December 09, Slightly 2015 cloudy 11:30am Urine Color December 09, Yellow 2014 11:30am Alanine December 09, 76 U/L H 30-65 Collected by Aminotransferase 2014 8:27am nurse? N (ALT/SGPT) Albumin December 09, 2.9 g/dL L 3.4-5.0 Collected by 2014 8:27am nurse? N Albumin/Globulin December 09, 1.160 N 1.1-1.8 Collected by Ratio 2014 8:27am nurse? N Alkaline Phosphatase December 09, 89 U/L N 38-126 Collected by 2014 8:27am nurse? N Álvaro Test December 07, pos 4L 2014 2:25am Amylase Level December 07, 37 U/L N 25-115 2014 1:40am Anion Gap December 09, 10.5 MEQ/L N 3-15 Collected by 2014 8:27am nurse? N Arterial Blood Base December 07, -2.0 N -2.0-3.0 4L Excess 2014 2:25am Arterial Blood HCO3 December 07, 23.0 MEQ/L N 22.0-26.0 4L 2014 2:25am Arterial Blood December 07, 99 % H 95-98 4L Oxygen Saturation 2014 2:25am Arterial Blood December 07, 34 mmHg L 35-45 4L Partial Pressure CO2 2014 2:25am Arterial Blood December 07, 114 mmHg H 80-105 4L Partial Pressure O2 2014 2:25am Arterial Blood Total December 07, 24.0 HELEN/L N 23.0-27.0 4L CO2 2014 2:25am Arterial Blood pH December 07, 7.43 N 7.35-7.45 All ABG Results called to isabelle read back the results. 2014 2:25am Called by Guzman Willis at 0233 Aspartate Amino December 09, 70 U/L H 15-37 Collected by Transf (AST/SGOT) 2014 8:27am nurse? N BUN/Creatinine Ratio December 09 N 10-20 Collected by 2014 8:27am nurse? N Basophils # (Auto) December 08, 0.0 10^3uL Collected by 2014 5:05am nurse? N Basophils (%) (Auto) December 08, 1 % N 0-2 Collected by 2014 5:05am nurse? N Blood Gas Liter Flow December 07, 4.0 LPM 4L 2014 2:25am Blood Gas Puncture December 07, lra 4L Site 2014 2:25am Blood Urea Nitrogen December 09, 7 mg/dL N 7-18 Collected by 2014 8:27am nurse? N Calcium Level December 09, 8.8 mg/dL N 8.8-10.8 Collected by 2014 8:27am nurse? N Calcium/Ionized December 09, 4.5 mg/dL N 3.8-4.6 Collected by Calcium Ratio 2014 8:27am nurse? N Calculated December 09, 265 mosm/L L 280-300 Collected by Osmolality 2014 8:27am nurse? N Carbon Dioxide Level December 09, 25 mmol/L N 22-29 Collected by 2014 8:27am nurse? N Chloride Level December 09, 103 mmol/L N 98-108 Collected by 2014 8:27am nurse? N Cholesterol Level August 158 mg/dL 0-199 2012 7:34am Creatinine December 09, 0.45 mg/dL L 0.6-1.2 Collected by 2014 8:27am nurse? N Eosinophils # (Auto) December 08, 0.0 10^3uL Collected by 2014 5:05am nurse? N Eosinophils (%) December 08, 1 % N 0-4 Collected by (Auto) 2014 5:05am nurse? N Estimat Glomerular December 09, 174.4 Collected by Filtration Rate 2014 8:27am nurse? N Estimated GFR December 09, 144.1 Collected by (Non- 2014 8:27am nurse? N Japanese Glucose Level December 09, 216 mg/dL H 70-110 Collected by 2014 8:27am nurse? N HDL Cholesterol August 38 mg/dL L 40-84 2012 7:34am Hematocrit December 08, 40.00 % N 35.00-45.00 Collected by 2014 5:05am nurse? N Hemoglobin December 08, 13.3 g/dL N 12.0-15.5 Collected by 2014 5:05am nurse? N Hemoglobin A1c December 07, 13.5 % H 4.0-6.0 Collected by 2014 1:40am nurse? N Influenza Virus Type December 07, Negative A Antibody 2014 1:20am Influenza Virus Type December 07, Positive [facility]. B Antibody 2014 1:20am Called by Shana Doe at 0151 LDL Cholesterol, August 84 mg/dL 0-130 Calculated 2012 7:34am Lipase December 07, 47 U/L N 23-300 2014 1:40am Lymphocytes # (Auto) December 08, 2.2 X10^3 Collected by 2014 5:05am nurse? N Lymphocytes (%) December 08, 36 % N 20-46 Collected by (Auto) 2014 5:05am nurse? N Mean Corpuscular December 08, 30.4 PG N 26.0-34.0 Collected by Hemoglobin 2014 5:05am nurse? N Mean Corpuscular December 08, 33.3 g/dL N 31.0-37.0 Collected by Hemoglobin Concent 2014 5:05am nurse? N Mean Corpuscular December 08, 91 FL N 80-100 Collected by Volume 2014 5:05am nurse? N Mean Platelet Volume December 08, 10.2 FL H 6.0-9.5 Collected by 2014 5:05am nurse? N Monocytes # (Auto) December 08, 0.8 X10^3 Collected by 2014 5:05am nurse? N Monocytes (%) (Auto) December 08, 13 % H 3-11 Collected by 2014 5:05am nurse? N Neutrophils # (Auto) December 08, 3.0 X10^3 Collected by 2014 5:05am nurse? N Neutrophils (%) December 08, 50 % L 51-67 Collected by (Auto) 2014 5:05am nurse? N Phosphorus Level December 07, 3.6 MG/DL N 2.4-4.9 Collected by 2014 nurse? N 10:00am Platelet Count December 08, 141 10^3uL L 150-450 Collected by 2014 5:05am nurse? N Potassium Level December 09, 3.7 mmol/L N 3.5-5.1 Collected by 2014 8:27am nurse? N Red Blood Count December 08, 4.38 10^6uL N 4.00-5.00 Collected by 2014 5:05am nurse? N Red Cell December 08, 12.6 % N 11.8-15.6 Collected by Distribution Width 2014 5:05am nurse? N Rubeola (Measles) April 05, Positive () Antibody 2013 2:22pm Rubeola (Measles) April 05, 4.76 OD >1.09 IgG Ab Index 2013 2:22pm Ratio Rubeola (Measles) April 05, - () <0.91=Negative 0.91 - 1.09= Equivocal Interpretation 2013 2:22pm >1.09=Positive Positive results suggest response to immunization or prior exposure. Sodium Level December 09, 134 mmol/L L 135-150 Collected by 2014 8:27am nurse? N Thyroid Stimulating August 1.72 UIU/ML N 0.46-4.68 Hormone (TSH) 2012 7:34am Total Bilirubin December 09, 0.4 mg/dL N 0.1-1.0 Collected by 2014 8:27am nurse? N Total Protein December 09, 5.4 g/dL L 6.4-8.5 Collected by 2014 8:27am nurse? N Triglycerides Level August 180 mg/dL H 0-149 2012 7:34am VLDL Cholesterol August 36 mg/dL H 0-28 2012 7:34am White Blood Count December 08, 6.12 10^3uL N 4.0-11.0 Collected by 2014 5:05am nurse? N Urine Culture Urine-Reji December 09, an Catch 2014 11:30am Procedures No known history of procedures. Encounters Encounter Location Date/Time Discharged Inpatient [facility] 12/07/14 3:13am Registered Clinic [facility] 12/07/14 1:10am Recent Diagnosis Hypoxia Influenza B Acute respiratory distress Hyperglycemia Diabetes mellitus, type 2 Hyponatremia Hypokalemia
--- OUTSIDE RECORDS SUMMARY | 2017-07-07 14:18 | External Medical Summary | Continuity of Care Document ---
:1960 Author Organization [facility] Care Team Providers Name Role Phone Boone Chowdhury Unavailable Unavailable Insurance Providers Payer Name Policy Number Subscriber Name Relationship [facility] [id number] Zoila Ortiz 16 Self / Same As Patient Advance Directives Directive Response Recorded Date/Time Advanced Directives No 11/15/16 5:01pm Chief Complaint and Reason for Visit Chief Complaint CHEST PAIN Reason for Visit Thyroid nodule Problems Active Problems Medical Problem Onset Date Status Abscessed tooth Unknown Acute Acute respiratory distress 12/07/2014 Acute Chest pain Unknown Acute DKA (diabetic [...] ORAL Daily 3 10/06/16 (Zestril) 20 Mg Insulin Human 15 Unit SUBCUTANEOUS Twice Daily 1 10/06/16 Isoph/Insulin Before Meals Regular (Insulin Humulin 70/30) 100 Unit/1 Ml Amitriptyline Hcl 10 Mg ORAL Bedtime 11/15/16 10 Mg Aspirin 81 Mg 81 Mg ORAL Daily 11/15/16 Citalopram 40 Mg ORAL Daily 11/15/16 Hydrobromide 40 Mg Gabapentin 300 Mg ORAL Daily 11/15/16 (Neurontin) 300 Mg Triamterene/[place] 1 Cap ORAL Daily 11/15/16 chlorothiazid (Maxzide 37.5 Mg-25 Mg) 1 Each Metformin Hcl 500 Mg ORAL Daily 11/15/16 (Glucophage) 500 Mg Metoprolol 50 Mg ORAL Twice A Day 11/15/16 Tartrate (Lopressor) 50 Mg Trazodone Hcl 100 75 Mg ORAL Bedtime 11/15/16 Mg Canagliflozin 100 100 Mg ORAL Daily 11/15/16 Mg Past Home Medications Medication Directions Ordered [...] Tablet, 1 Each Oral for Severe Pain Ibuprofen (Motrin) 200 Mg Tablet, Three Times A Day as needed 10/06/16 Discontinued 600 Mg Oral for Pain Hydrocodone Bit/Acetaminophen 1 Every 6 Hours as needed for 10/06/16 Discontinued Each Tablet, 1 Each Oral Pain Social History Social History Problem Response Recorded Date/Time Onset Date Status Exposure to occupational hazards Yes 11/15/2016 5:01pm Query Response Start Date Stop Date Smoking Status Never smoker Hospital Discharge Instructions Patient's Instructions Instructions Instructions You were admitted for chest pain. Your labs were negative and EKG normal. Keep your scheduled appointments with Dr Reyes for your heart cath this Tuesday. Notify Dr Reyes for any further episodes of chest pain. Continue your home medications Activity Instructions as tolerates Doctor's Appointment Keep all your scheduled appointments Discharge Diet: Carbohydrate controlled Plan of Care Discharge Date 11/16/16 10:28am Disposition 01 HOME OR SELF-CARE Prescriptions See Medication Section Care Plan and Goals See Discharge Instructions Section Functional Status Query Response Date Recorded Level of Conscious Alert November 16, 2016 9:14am Oriented x4 Movement Moves extremities November 16, 2016 9:14am Allergies, Adverse Reactions, Alerts Allergen Type Severity [...] Vital Signs Vital Response Date/Time Temperature (Fahrenheit) 98.0 11/16/2016 7:42am Pulse 56 bpm 11/16/2016 9:18am Respirations 18 11/16/2016 7:42am Height 4 ft 11 in Weight 150 lb Body Mass Index 30.0 kg/m^2 Results Pending Laboratory Results Test Name Collection Date/Time Procedures Procedure Status Date Provider(s) Completed 11/02/16 Encounters Encounter Location Arrival/Admit Date Discharge/Depart Date Attending Provider Discharged Manny 11/15/16 4:45pm 11/16/16 10:28am [facility] Inpatient (obs[facility] Jeanmarie Garcia MD Registered Manny 11/02/16 7:01am [facility] Recent Diagnosis Thyroid nodule
--- NOTE | 2017-07-07 14:28 | Emergency Department Report ---
General Adult HPI - General Chief complaint: Extremity Problem,Nontraumatic Stated complaint: infection of the bone in right foot and leg Time Seen by Provider: 07/07/17 14:17 Source: patient Mode of arrival: ambulatory Limitations: no limitations - History of Present Illness HPI narrative: 56-year-old female presents to the emergency department with a chief complaint of known osteomyelitis of the right great toe along with increasing cellulitis of the right lower extremity. Patient has been treated as an outpatient with Rocephin and Flagyl. She believes she is failing outpatient treatment. She describes her pain as moderate. Pain is dull. No radiation. Pain improves with analgesia. She has no other complaints or associated symptoms. She was at home when her symptoms began. Symptoms been persistent in nature since onset. The nurse practitioner from her primary care physician's office referred her to [facility] as she did not feel she was being managed appropriately by [facility]. - Related Data Home Medications Medication Instructions Recorded Confirmed Protonix (Pantoprazole)40 mg 40 mg PO QAM 02/24/17 07/07/17 tablet,delayed release empagliflozin 25 mg tablet 25 mg PO QAM 02/24/17 07/07/17 hydralazine 25 mg tablet 25 mg PO QID 02/24/17 07/07/17 lisinopril 20 mg tablet 20 mg PO BID tab 02/24/17 07/07/17 trazodone 150 mg tablet 150 mg PO HS tab 02/24/17 07/07/17 Aspirin [Aspirin EC] 81 mg PO HS 07/07/17 07/07/17 Gabapentin [Gralise] 600 mg PO BID 07/07/17 07/07/17 HydroCHLOROthiazide [Hydrodiuril] 12.5 mg PO WB 07/07/17 07/07/17 Hydrocodone/APAP 5/325 [[place] 1 - 2 tab PO Q6H PRN 07/07/17 07/07/17 5/325] Insulin NPH/Reg-Don't Expunge 25 unit SQ BID 07/07/17 07/07/17 [Humulin 70/30] Metformin [Glucophage] 500 mg PO BIDWM 07/07/17 07/07/17 Metoclopramide [Reglan] 5 mg PO PRN 07/07/17 07/07/17 metroNIDAZOLE [Flagyl] 500 mg PO BID 07/07/17 07/07/17 Previous Rx's Medication Instructions Recorded Celexa (citalopram) 40 mg tablet 40 mg PO DAILY #30 tab 03/21/17 Topamax (topiramate) 25 mg tablet 25 mg PO BID #60 tab 04/26/17 isosorbide mononitrate ER 30 mg 30 mg PO QAM #90 tab 04/28/17 tablet,extended release 24 hr Allergies Allergy/AdvReac Type Severity Reaction Status Date / Time azithromycin [From Zithromax] Allergy UNKNOWN Verified 07/07/17 14:06 Influenza Virus Vaccines Allergy UNKNOWN Verified 07/07/17 14:06 morphine Allergy UNKNOWN Verified 07/07/17 14:06 Penicillins Allergy UNKNOWN Verified 07/07/17 14:06 Beta-Blockers AdvReac Severe heart Verified 07/07/17 14:07 (Beta-Adrenergic Bloc difficulties diltiazem [From Cardizem] AdvReac Severe BRADYCARDIA Verified 07/07/17 14:06 prednisone AdvReac Intermediate ANXIETY Verified 07/07/17 14:06 silver AdvReac Intermediate BLISTERS Verified 07/07/17 14:06 [From Tegaderm AG Mesh] chronotropic drugs AdvReac Severe SYNCOPE, Uncoded 02/24/17 10:35 BRADYCARDIA Review of Systems Constitutional: Denies: fever, chills Eyes: Denies: eye pain, vision change ENT: Denies: ear pain, throat pain Cardiovascular: Denies: chest pain, palpitations Respiratory: Denies: cough, dyspnea Gastrointestinal: Denies: abdominal pain, nausea, vomiting, diarrhea Genitourinary: Denies: urgency, dysuria Musculoskeletal: Denies: back pain, arthralgia Integumentary: Denies: erythema, rash Neurological: Denies: headache, numbness Psychiatric: Denies: anxiety, depression Endocrine: Denies: fatigue, heat or cold intolerance Hematological/Lymphatic: Denies: easy bleeding, easy bruising Allergic/Immunologic: Denies: facial swelling, urticaria PFSH Patient Stated Medical History Migraine Yes: Hx of Other HEENT Yes: Wears glasses Hypertension Yes Bronchitis Yes: Hx of Other Respiratory Seasonal allergies Diabetes Mellitus Type 2 Yes Hx Kidney Stones Yes: Hx of Hx Urinary Tract Infection Yes: Hx of Other Hematologic Yes: Daily 81mg ASA Osteoarthritis Yes Shingles Yes: Resolved Depression Yes Now Yes Clinic Medical History Insomnia (Chronic Medical) Chronic bronchitis (Chronic Medical) Seasonal allergies (Chronic Medical) Hypercholesterolemia (Chronic Medical) RLS (restless legs syndrome) (Chronic Medical) Migraine (Chronic Medical) Diabetes mellitus (Chronic Medical) requiring insulin since 2004 HTN (hypertension) (Chronic Medical) Dyspepsia (Chronic Medical) Surgical History: Tonsillectomy . Right carpal tunnel release 1990. C- section and fibroidectomy 1990. Tumor at base of L thumb removed 1999. Rotator cuff repair 2007. Mass removed from xiphoid process (benign) 09/2016. Colonoscopy 2007, polyp with high grade dysplasia at 40cm Family History: Family History Mother , at age 61 Emphysema lung COPD (chronic obstructive pulmonary disease) Myocardial infarction Father , at age 62 Emphysema lung Lung cancer Brother Diabetes mellitus Sister Emphysema lung Diabetes mellitus - Social History Smoking status: Never smoker Substance use type: does not use Alcohol intake frequency: does not drink Physical Exam - Limitations Limitations: no limitations - General General appearance: alert, in no apparent distress - Normal Exams: Head:: Normocephalic without trauma Eyes:: Pupils are PERRLA w/ EOMI, No scleral icterus, irritation, or foreign bodies noted ENMT:: No facial trauma, nasal exudates, pharyngeal erythema, or exudates are noted Dental: No fractured, loose, or missing teeth noted Neck:: Full range of motion, without adenopathy, JVD, bruits or thyromegaly Chest/Respirations:: Clear all mendoza, with good airflow, and symmetry bilaterally Cardiovascular:: Regular rate and rhythm, without murmur or gallop, Pulses 2+ all extremities, capillary refill, <2 seconds all extremities Abdomen:: Bowel sounds positive, soft, non-tender, non-distended, no hepatosplenomegaly, masses or bruits noted Lymphatic:: No lymphadenopathy, or lymphedema noted Musculoskeletal:: No tenderness, or deformity noted, good range of motion, all extremities (right lower extremity - erythema and tenderness over the great toe and dorsal surface of the foot. No crepitus. Pulses are intact. Sensation intact. Capillary refill less than 2. Full range of motion. No other tenderness in the right lower extremity. No sign of abscess or obvious foreign body.) Integumentary:: No rashes, hives, or bruising noted, hair and nails, without abnormality Neurological:: Patient is alert, and oriented, cranial nerves, motor/sensory/ cerebellar, exams w/o gross deficits, to observation Psychiatric:: Patient exhibits, appropriate attention, emotion and affect Course Vital Signs Temperature 98.4 F 07/07/17 12:57 Pulse Rate 59 L 07/07/17 12:57 Respiratory Rate 16 07/07/17 12:57 Blood Pressure 118/57 07/07/17 12:57 Pulse Oximetry 97 07/07/17 12:57 Temperature 96.5 F L 07/08/17 00:35 Pulse Rate 56 L 07/08/17 00:35 Respiratory Rate 16 07/08/17 00:35 Blood Pressure 126/57 07/08/17 00:35 Pulse Oximetry 93 07/08/17 00:35 Medical Decision Making - [facility] Narrative Medical decision making narrative: Labs / imaging were discussed in detail with the patient and questions are answered. Patient is given vancomycin intravenously at 1618 with an infectious process is considered. Patient is given parental narcotic and antiemetic medications intravenously with improvement of symptoms. Patient is discussed with Dr. Lindsey and will be admitted to his service in improved condition. Patient and family are in agreement with the current plan of management. Patient is admitted to the hospital in improved condition. No further orders from accepting physician is in agreement with the current plan of management. - Differential Diagnosis cellulitis, osteomyelitis, gout, metabolic disorder - Lab Data Result diagrams: 07/08/17 04:42 07/08/17 04:42 Lab Results 07/07/17 07/07/17 07/07/17 Range/Units 14:46 14:56 14:56 WBC 11.5 H (4.5-11.0) T/MM3 RBC 4.15 (4.00-5.20) M/MM3 Hgb 12.3 (12-16) GM/DL Hct 39.6 (36-46) % MCV 95.4 (80-100) UM3 MCH 29.6 (26-34) UUG MCHC 31.1 (31-37) GM/DL RDW Std Deviation 45.4 (36.9-50.2) FL Plt Count 325 (130-400) T/MM3 MPV 9.0 L (9.4-12.4) UM3 Immature Gran % (Auto) 0.3 (0.0-0.5) % Neut % (Auto) 55.9 (33-66) % Lymph % (Auto) 26.4 (23-45) % Lane % (Auto) 6.4 (0-9.0) % Eos % (Auto) 10.4 H (0-4) % Baso % (Auto) 0.6 (0-2) % Neut # (Auto) 6.4 (1.8-7.7) T/MM3 Lymph # (Auto) 3.0 (1-4.8) T/MM3 Lane # (Auto) 0.7 (0-0.8) T/MM3 Eos # (Auto) 1.2 H (0-0.5) T/MM3 Baso # (Auto) 0.1 (0-0.2) T/MM3 Abs Immat Gran (auto) 0.04 H (0.00-0.03) T/MM3 Turbidity < 20 (0-20) Sodium 142 (134-144) MEQ/L Potassium 4.5 (3.6-5) MEQ/L Chloride 110 H (98-107) MEQ/L Carbon Dioxide 25 (22-30) MEQ/L Anion Gap 7 (5-15) MEQ/L BUN 14.0 (7-17) MG/DL Creatinine 0.7 (0.7-1.2) MG/DL GFR Calculation 86 BUN/Creatinine Ratio 20 (6-26) RATIO Glucose 178 H (65-110) MG/DL Calculated Osmolality 278 (261-280) MOSM/KG Uric Acid 5.6 (2.5-7.5) MG/DL Calcium 10.0 (8.4-10.2) MG/DL Total Bilirubin < 0.10 L (0.20-1.30) MG/DL Icterus Index < 2 (0-7) AST 21 (14-36) U/L ALT 41 (9-52) U/L Alkaline Phosphatase 81 (38-126) U/L Total Protein 6.6 (6.3-8.2) G/DL Albumin 3.5 (3.5-5.0) G/DL Globulin 3.1 (2.4-3.6) G/DL Albumin/Globulin Ratio 1.1 (1.1-2.2) RATIO Plasma Lactate 1.3 (0.6-2.2) MMOL/L Procalcitonin NG/ML Specimen Hemolysis < 15 (0-25) 10/26/ Range/Units 14:56 WBC (4.5-11.0) T/MM3 RBC (4.00-5.20) M/MM3 Hgb (12-16) GM/DL Hct (36-46) % MCV (80-100) UM3 MCH (26-34) UUG MCHC (31-37) GM/DL RDW Std Deviation (36.9-50.2) FL Plt Count (130-400) T/MM3 MPV (9.4-12.4) UM3 Immature Gran % (Auto) (0.0-0.5) % Neut % (Auto) (33-66) % Lymph % (Auto) (23-45) % Lane % (Auto) (0-9.0) % Eos % (Auto) (0-4) % Baso % (Auto) (0-2) % Neut # (Auto) (1.8-7.7) T/MM3 Lymph # (Auto) (1-4.8) T/MM3 Lane # (Auto) (0-0.8) T/MM3 Eos # (Auto) (0-0.5) T/MM3 Baso # (Auto) (0-0.2) T/MM3 Abs Immat Gran (auto) (0.00-0.03) T/MM3 Turbidity (0-20) Sodium (134-144) MEQ/L Potassium (3.6-5) MEQ/L Chloride (98-107) MEQ/L Carbon Dioxide (22-30) MEQ/L Anion Gap (5-15) MEQ/L BUN (7-17) MG/DL Creatinine (0.7-1.2) MG/DL GFR Calculation BUN/Creatinine Ratio (6-26) RATIO Glucose (65-110) MG/DL Calculated Osmolality (261-280) MOSM/KG Uric Acid (2.5-7.5) MG/DL Calcium (8.4-10.2) MG/DL Total Bilirubin (0.20-1.30) MG/DL Icterus Index (0-7) AST (14-36) U/L ALT (9-52) U/L Alkaline Phosphatase (38-126) U/L Total Protein (6.3-8.2) G/DL Albumin (3.5-5.0) G/DL Globulin (2.4-3.6) G/DL Albumin/Globulin Ratio (1.1-2.2) RATIO Plasma Lactate (0.6-2.2) MMOL/L Procalcitonin < 0.05 NG/ML Specimen Hemolysis (0-25) - Radiology Data Right foot x-ray: Findings consistent with osteomyelitis. No gas. Disposition Clinical Impression: Osteomylitis Disposition: To [facility] Condition: Stable Time of Disposition: 16:00 (Admit. Dr. Lindsey. ) - Seen By: physician
[2017-07-07] MEDS: SALINE FLUSH 10ml SYRINGE IVF PRN ×2 (15:00→16:53)
[2017-07-07] MEDS ORDERED: HYDROMORPHONE 2 MG/ML INJECTION IVP ONE (15:26)
--- NOTE | 2017-07-07 15:38 | XRay Report ---
EXAM: Right foot series HISTORY: Osteomyelitis TECHNIQUE: Three views of the right foot were obtained. ENCOUNTER: Initial COMPARISON: No prior studies available for comparison. FINDINGS: The osseous structures of the right foot are primarily of normal density and contour maintaining normal anatomic alignment at the articular surfaces. There is focal destructive changes involving the distal tuft of the first distal phalanx. There is associated soft tissue swelling about the right great toe most consistent with and associated cellulitis. There are a few tiny radiopaque density seen on the skin surface of the distal plantar aspect of the right great toe which may represent radiopaque foreign bodies/dirt on the skin surface. There is no obvious subcutaneous emphysema. IMPRESSION: 1. Focal destructive changes involving the distal tuft of the first distal phalanx consistent with osteomyelitis. 2. There is associated right great toe cellulitis. 3. Tiny radiopaque densities plantar skin surface of the right great toe which may represent radiopaque foreign bodies/dirt , correlate clinically. A pulmonary report was called to Dr. Sandip Silva immediately following the initial review of this examination 07/07/2017 at 3:32 PM .
--- NOTE | 2017-07-07 16:06 | Ultrasound Report ---
EXAM: US venous doppler LE RT HISTORY: Swelling. COMPARISON: No prior studies available for comparison. Using duplex and color flow technology the deep venous system of the right leg was evaluated throughout its length. No abnormal findings were demonstrated, specifically no intraluminal thrombus is seen. The deep venous system appears completely compressible throughout its length. At the same time it shows the normal properties of spontaneous flow as well as augmentation. IMPRESSION: Negative venous ultrasound of the right lower extremity. .
--- NOTE | 2017-07-07 17:14 | History & Physical Report ---
<Domi Moses - Last Filed: 07/07/17 18:37> History of Present Illness Date: 07/07/17 Chief complaint: toe pain/infection HPI: Patient is a 56-year-old diabetic female who presents to emergency room today to follow-up on worsening right great toe cellulitis. She has a history of hospitalization at [facility] from June 25 through June 30. She states she was given vancomycin during her hospitalization and was dismissed on daily Rocephin injections she was receiving through her PICC line. During her hospitalization she reports the toe infection was much improved. Since she has been home and doing the daily Rocephin treatment, her symptoms have worsened. She reports she has also been taking Flagyl. She was in to see Dr. Chowdhury's PA yesterday for hospital follow up and was sent back to [place] [facility] for treatment as her symptoms were worsening. Patient reports last night in the ER she received a dose of vancomycin, which she thinks helped her symptoms, and also had cultures taken and some labs drawn. In the ER today, her white blood cell count was elevated at 11.5. Chloride was 110 and blood sugar is 178, otherwise CMP was normal. Her lactate and pro calcitonin were both normal. She's been afebrile. Has had no tachycardia or hypotension. She still has a PICC line in the left arm. She reports she's had trouble with her PICC line the last few days. She's also been having pain in that arm and had venous Doppler performed last night in the [place] ER. She reports that was negative. Right foot x-ray today showed focal destructive changes involving the distal tuft of the first distal phalanx consistent with osteomyelitis and associated right great toe cellulitis. Venous Doppler of the right lower extremity today was negative. Patient reports her pain has significantly worsened over the past 24 hours. Gradually over this past week her symptoms have been increasing, specifically increasing swelling and redness and pain. She reports today in the ER her pain was 9/10. She reports she has taken [place] and this did not help her pain. She had Dilaudid 0.5 mg IV in the ER and this brought her pain down to 5/10. Of note, patient reports that in November, following removal of a benign mass from her xiphoid process, she began having chest pain. She was worked up with heart cath which was negative. She states she was given 1 dose of a beta smitha and she spiked a high blood pressure and then became hypotensive and bradycardic. She gives a history of needing to be externally paced while being [facility] to [place]. She states she had an internal pacer placed for a week, but then it was removed. She reports she continues to have episodes of low blood pressures and low pulse with no definitive etiology. She was to have tilt table testing performed next week but has canceled it since she is being hospitalized. Review of Systems All systems PM: 10-point ROS was reviewed, no additional remarkable complaints except - Respiratory Respiratory: Present: cough (feels this is allergy related) - Gastrointestinal Gastrointestinal: Present: diarrhea (secondary to metformin) - Musculoskeletal Musculoskeletal: Present: as per HPI - Allergic/Immunologic Allergic/Immunologic: Seasonal allergies PFSH Medical History Diabetes mellitus -type II requiring insulin since 2004 HTN (hypertension) Insomnia History of Chronic bronchitis Seasonal allergies Hypercholesterolemia RLS (restless legs syndrome)-quiescent Migraine GERD Recurrent chest pain and hypotensive episodes-unknown etiology Surgical History: Tonsillectomy . Right carpal tunnel release 1990. C- section and fibroidectomy 1990. Tumor at base of L thumb removed 1999. Rotator cuff repair (right) 2007 (Dr. Corbett). Mass removed from xiphoid process (benign) 09/2016 (Dr. Farley). Colonoscopy 2007, polyp with high grade dysplasia at 40cm. Left foot and ankle surgery (Dr. Chavez in [place]). Negative heart cath (November 2016)-Dr. 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 Medications Home Medications Medication Instructions Recorded Confirmed Type Protonix (Pantoprazole)40 mg 40 mg PO QAM 02/24/17 07/07/17 History tablet,delayed release empagliflozin 25 mg tablet 25 mg PO QAM 02/24/17 07/07/17 History hydralazine 25 mg tablet 25 mg PO QID 02/24/17 07/07/17 History lisinopril 20 mg tablet 20 mg PO BID tab 02/24/17 07/07/17 History trazodone 150 mg tablet 150 mg PO HS tab 02/24/17 07/07/17 History Aspirin [Aspirin EC] 81 mg PO HS 07/07/17 07/07/17 History Gabapentin [Gralise] 600 mg PO BID 07/07/17 07/07/17 History HydroCHLOROthiazide [Hydrodiuril] 12.5 mg PO WB 07/07/17 07/07/17 History Insulin NPH/Reg-Don't Expunge 25 unit SQ BID 07/07/17 07/07/17 History [Humulin 70/30] Metformin [Glucophage] 500 mg PO BIDWM 07/07/17 07/07/17 History Metoclopramide [Reglan] 5 mg PO PRN 07/07/17 07/07/17 History Allergies Allergy/AdvReac Type Severity Reaction Status Date / Time azithromycin [From Zithromax] Allergy UNKNOWN Verified 07/07/17 14:06 Influenza Virus Vaccines Allergy UNKNOWN Verified 07/07/17 14:06 morphine Allergy UNKNOWN Verified 07/07/17 14:06 Penicillins Allergy UNKNOWN Verified 07/07/17 14:06 Beta-Blockers AdvReac Severe heart Verified 07/07/17 14:07 (Beta-Adrenergic Bloc difficulties diltiazem [From Cardizem] AdvReac Severe BRADYCARDIA Verified 07/07/17 14:06 prednisone AdvReac Intermediate ANXIETY Verified 07/07/17 14:06 silver AdvReac Intermediate BLISTERS Verified 07/07/17 14:06 [From Tegaderm AG Mesh] chronotropic drugs AdvReac Severe SYNCOPE, Uncoded 02/24/17 10:35 BRADYCARDIA Exam Vital Signs: Temperature 98.4 F 07/07/17 12:57 Pulse Rate 62 07/07/17 16:32 Respiratory Rate 18 07/07/17 16:32 Blood Pressure 128/63 07/07/17 16:32 Pulse Oximetry 99 07/07/17 16:32 Height/Weight/BMI: Height 1.5 m Weight 86.183 kg - Constitutional Present: no acute distress, well nourished, well developed, obese - Routine HEENT Exam Head: Present: normocephalic, atraumatic Eye: Present: EOMI ENT: Present: mucous membranes moist, oropharynx clear. Absent: dentition normal (missing a few teeth) - Routine Neck Exam Present: supple, full ROM. Absent: lymphadenopathy, thyromegaly - Routine Respiratory Exam Present: CTA bilaterally. Absent: wheezes - Routine Cardiovascular Exam Present: RRR, S1, S2. Absent: murmur - Routine Abdominal Exam Present: soft, normoactive bowel sounds, non distended. Absent: tenderness, organomegaly, mass - Routine Extremities Exam Present: normal capillary refill Comments: scab to distal R great toe. 2+ swelling to R lower leg and foot/toes. Erythema extends from great toe to mid-staton. LLE w/o swelling. - Routine Skin Exam Present: dry, warm, wounds (scab on distal R great toe) - Routine Neurological Exam Present: alert, oriented X3, CN II-XII intact - Routine Psychiatric Exam Present: normal affect, cooperative Results - Labs CBC & Chem 7: 07/07/17 14:56 07/07/17 14:56 Labs: Laboratory Tests 07/07/17 07/07/17 07/07/17 14:46 14:56 14:56 Uric Acid 5.6 Plasma Lactate 1.3 Procalcitonin < 0.05 Microbiology Results: Microbiology 07/07/17 14:56 Peripheral/Iv Start Blood Culture - Preliminary Culture Initiated - Results Pending 07/07/17 14:58 Peripheral/Iv Start Blood Culture - Preliminary Culture Initiated - Results Pending - Imaging and Cardiology Chest x-ray Additional comments: 07/07/17 There is focal destructive changes involving the distal tuft of the first distal phalanx. There is associated soft tissue swelling about the right great toe most consistent with and associated cellulitis. There are a few tiny radiopaque density seen on the skin surface of the distal plantar aspect of the right great toe which may represent radiopaque foreign bodies/dirt on the skin surface. There is no obvious subcutaneous emphysema. IMPRESSION: 1. Focal destructive changes involving the distal tuft of the first distal phalanx consistent with osteomyelitis. 2. There is associated right great toe cellulitis. 3. Tiny radiopaque densities plantar skin surface of the right great toe which may represent radiopaque foreign bodies/dirt , correlate clinically. Venous US Additional comments: Date of Exam: 07/07/17 Ordering Provider: Doug Silva DO Type of Exam(s): US venous doppler LE RT Reason for Exam(s): Swelling. EXAM: US venous doppler LE RT HISTORY: Swelling. COMPARISON: No prior studies available for comparison. Using duplex and color flow technology the deep venous system of the right leg was evaluated throughout its length. No abnormal findings were demonstrated, specifically no intraluminal thrombus is seen. The deep venous system appears completely compressible throughout its length. At the same time it shows the normal properties of spontaneous flow as well as augmentation. IMPRESSION: Negative venous ultrasound of the right lower extremity. Assessment and Plan (1) Osteomyelitis of toe of right foot Status: Acute (2) Hypercholesterolemia Status: Chronic (3) Diabetes mellitus Problem details: requiring insulin since 2004 Status: Chronic (4) HTN (hypertension) Status: Chronic Assessment and Plan: Impression Osteomyelitis-right great toe Diabetes mellitus -type II (hemoglobin A1C 7.6 in 02/26) requiring insulin since 2004 Leukocytosis-likely related to osteomyelitis Diabetic peripheral neuropathy HTN (hypertension) Insomnia History of Chronic bronchitis Seasonal allergies Hypercholesterolemia RLS (restless legs syndrome)-quiescent Migraine headaches GERD Recurrent chest pain and hypotensive episodes-unknown etiology Plan Admit to inpatient status under the hospitalist team, Dr. Lindsey attending, for IV antibiotics and pain control for osteomyelitis. It is expected that her stay will exceed 2 overnights given she has failed outpatient treatment with IV antibiotics. Pharmacy consult for vancomycin dosing. Levaquin 750qd. ID consult placed. Have requested records from [facility] and emergency room. Based on patient's report, it sounds like they had done cultures there. Continue home insulin dosing and check ac hs Accu-Cheks. Will adjust insulin as needed. Continue metformin and empagliflozin. Continue trazodone at bedtime for insomnia. Continue lisinopril, hydralazine, and hydrochlorothiazide for hypertension. Continue gabapentin 600 mg twice a day for neuropathic pain. Continue pantoprazole every morning for GERD. Continue citalopram and topiramate for mood. Continue isosorbide mononitrate ER daily for angina. She reports that she uses sublingual nitroglycerin, but hasn't used in the past month. Lovenox and SCDs for DVT prophylaxis. Case discussed with Dr. Lindsey. Patient requests to be full code. Upon discharge, patient's care to return to her PCP, Dr. Chowdhury. DVT Prophylaxis: SCD's, Lovenox Resuscitation Status: Full Code Hospital Course Summary Disclaimer: The visit summary below is not to be considered part of the above Progress Note. Hospital Course: Impression Osteomyelitis-right great toe Diabetes mellitus -type II (A1C 7.6 in 02/26) requiring insulin since 2004 Leukocytosis-likely related to osteomyelitis Diabetic peripheral neuropathy HTN (hypertension) Insomnia History of Chronic bronchitis Seasonal allergies Hypercholesterolemia RLS (restless legs syndrome)-quiescent Migraine headaches GERD Recurrent chest pain and hypotensive episodes-unknown etiology 07/07/17-hospital admission Admit to inpatient status under the hospitalist team, Dr. Lindsey attending, for IV antibiotics and pain control for osteomyelitis. It is expected that her stay will exceed 2 overnights given she has failed outpatient treatment with IV antibiotics. Pharmacy consult for vancomycin dosing. Levaquin 750qd. ID consult placed. Have requested records from [facility] and emergency room. Based on patient's report, it sounds like they had done cultures there. Continue home insulin dosing and check ac hs Accu-Cheks. Will adjust insulin as needed. Continue metformin and empagliflozin. Continue trazodone at bedtime for insomnia. Continue lisinopril, hydralazine, and hydrochlorothiazide for hypertension. Continue gabapentin 600 mg twice a day for neuropathic pain. Continue pantoprazole every morning for GERD. Continue citalopram and topiramate for mood. Continue isosorbide mononitrate ER daily for angina. She reports that she uses sublingual nitroglycerin, but hasn't used in the past month. Lovenox and SCDs for DVT prophylaxis. Case discussed with Dr. Lnidsey. Patient requests to be full code. Upon discharge, patient's care to return to her PCP, Dr. Chowdhury. <Jeff Lindsey - Last Filed: 07/11/17 19:29> History of Present Illness Date: 07/11/17 [facility] Patient Stated Medical History Migraine Yes: Hx of Peripheral Neuropathy Yes Dental Problems Yes Other HEENT Yes: Wears glasses Angina Yes Cardiac Arrhythmia Yes: Hx of bradycardia Heart Murmur Yes Hypertension Yes Bronchitis Yes: Hx of Pneumonia Yes: Hx of Other Respiratory Seasonal allergies Diabetes Mellitus Type 2 Yes Hx Kidney Stones Yes: Hx of Hx Urinary Tract Infection Yes: Hx of Anemia Yes: Hx of Other Hematologic Yes: Daily 81mg ASA Shingles Yes: Resolved Anesthesia Reactions Yes Depression Yes Fibroids Yes: Hx of Clinic Medical History Insomnia (Chronic Medical) Chronic bronchitis (Chronic Medical) Seasonal allergies (Chronic Medical) Hypercholesterolemia (Chronic Medical) RLS (restless legs syndrome) (Chronic Medical) Migraine (Chronic Medical) Diabetes mellitus (Chronic Medical) requiring insulin since 2004 HTN (hypertension) (Chronic Medical) Dyspepsia (Chronic Medical) Family History: Family History Mother , at age 61 Emphysema lung COPD (chronic obstructive pulmonary disease) Myocardial infarction Father , at age 62 Emphysema lung Lung cancer Brother Diabetes mellitus Sister Emphysema lung Diabetes mellitus Exam Vital Signs: Temperature 97.2 F 07/09/17 08:21 Pulse Rate 64 07/09/17 08:21 Respiratory Rate 16 07/09/17 08:21 Blood Pressure 135/66 07/09/17 08:21 Pulse Oximetry 93 07/09/17 08:21 Height/Weight/BMI: Height 4 ft 11 in Weight 89.1 kg Body Mass Index 39.6 Results - Labs CBC & Chem 7: 07/08/17 04:42 07/09/17 07:31 Assessment and Plan (1) Diabetes mellitus Problem details: requiring insulin since 2004 Status: Chronic (2) Osteomyelitis of toe of right foot Status: Acute Assessment and Plan: Seen and examined patient on same day as the above note. Agree with history, physical, assessment and plan. Comprehensive physical findings correlate to the above note. Foot shows some moderate erythema, however the subjective symptoms of chills and malaise for more indicative of failure of the medication. There is a small dry lesion as a pressure ulcer of the right great toe. Corresponding radiology shows acute osteomyelitis. She has failed outpatient treatment with a cephalosporin and will require IV medications at this point. Fortunately she already has a PIC line. Anticipating patient treatment with a consult to Dr. Austin and infectious disease before transitioning to with her outpatient IV medications. Documented on Dragon speech to text. Efforts to correct speech recognition errors performed, but variation may exist Hospital Course Summary Disclaimer: The visit summary below is not to be considered part of the above Progress Note.
[2017-07-07] MEDS: HYDROCODONE/APAP 5mg/325mg TABLET PO PRN ×2 (17:22→21:54)
[2017-07-07] MEDS ORDERED: VANCOMYCIN - PHARMACY CONSULT MC ONE (17:34)
[2017-07-07] MEDS ORDERED: HYDROMORPHONE 2 MG/ML INJECTION IM PRN (17:34)
[2017-07-07] MEDS ORDERED: ONDANSETRON 4 MG/2 ML INJECTION IVP PRN (17:34)
[2017-07-07 17:41] VITALS: BMI 39.6
--- NOTE | 2017-07-07 18:11 | Pharmacy Consult-Antibiotics ---
Pharmacy Consult-Vancomycin - Laboratory Information WBC 11.5 T/MM3 (4.5-11.0) H 07/07/17 14:56 BUN 14.0 MG/DL (7-17) 07/07/17 14:56 Creatinine 0.7 MG/DL (0.7-1.2) 07/07/17 14:56 Procalcitonin < 0.05 NG/ML 07/07/17 14:56 - Consult Information Vancomycin consult by Roxanne KRISHNAMURTHY noted. Ms Austin received vancomycin 1750mg IV in ED late this afternoon. She has a cellulitis in the right great toe. Vancomycin 1 gram IV q8h starting at midnight has been ordered. Will draw trough at steady state and evaluate. Thank you.
[2017-07-07] MEDS: INSULIN NPH/REG 70/30 INJECTION SQ SCH (21:44)
[2017-07-07] MEDS: TRAZODONE 50 MG TABLET PO SCH (21:44)
[2017-07-07] MEDS: TOPIRAMATE 25 MG TABLET PO SCH (21:45)
[2017-07-07] MEDS: GABAPENTIN 600 MG TABLET PO SCH (21:45)
[2017-07-07] MEDS: LISINOPRIL 20 MG TABLET PO SCH (21:45)
[2017-07-07] MEDS: ASPIRIN *EC* 81 MG TABLET PO SCH (21:45)
[2017-07-07] MEDS: HYDRALAZINE 25 MG TABLET PO SCH (21:45)
[2017-07-08] MEDS: SALINE FLUSH 10ml SYRINGE IVF PRN (01:12)
[2017-07-08] MEDS ORDERED: NS FLUSH BAG 500ml IV PRN (01:13)
[2017-07-08] MEDS ORDERED: LEVOFLOXACIN 750 MG TABLET PO SCH (06:30)
[2017-07-08] MEDS: PANTOPRAZOLE 40 MG TABLET PO SCH (06:49)
[2017-07-08] MEDS: ISOSORBIDE MONONITRATE ER 30 MG TABLET PO SCH (06:49)
[2017-07-08] MEDS: HYDROCODONE/APAP 5mg/325mg TABLET PO PRN ×2 (09:17→18:47)
[2017-07-08] MEDS: LISINOPRIL 20 MG TABLET PO SCH ×2 (09:18→21:58)
[2017-07-08] MEDS: INSULIN NPH/REG 70/30 INJECTION SQ SCH ×2 (09:18→21:59)
[2017-07-08] MEDS: METFORMIN 500 MG TABLET PO SCH ×2 (09:18→17:15)
[2017-07-08] MEDS: CITALOPRAM 40 MG TABLET PO SCH (09:18)
[2017-07-08] MEDS: EMPAGLIFLOZIN 10 MG TABLET PO SCH (09:18)
[2017-07-08] MEDS: TOPIRAMATE 25 MG TABLET PO SCH ×2 (09:18→21:58)
[2017-07-08] MEDS: HYDRALAZINE 25 MG TABLET PO SCH ×4 (09:18→21:59)
[2017-07-08] MEDS: GABAPENTIN 600 MG TABLET PO SCH ×2 (09:19→21:59)
--- NOTE | 2017-07-08 09:42 | Infectious Disease Consult ---
Infectious Disease Consult Date of Consultation: 07/08/17 Requesting Physician: Jeff Lindsey Reason for Consultation: antibiotic recs History of Present Illness: Ms. Austin is a 56 y/o diabetic woman who was recently admitted to [facility] on approximately 06/25/17 with cellulitis of the RLE. She states that she was unaware that she had a wound or any drainage, but on admission she was noted to have drainage from her R great toe. She was treated with Vancomycin and another IV antibiotic during her admission. She reports that an MRI was done and she was told she had bone infection in her R great toe. She had a PICC placed in her LUE. She reports that the redness RLE had decreased to just above the ankle on discharge, which was 06/30. She started on outpatient ceftriaxone infusions on 07/01 through the infusion area of the [facility]. By Tuesday, 07/04, she reports that the erythema had increased to 2 inches below her knee, and the edema and pain had increased as well. She was evaluated again in the ED in [place], and also in Dr. Chowdhury's office (Dr. Chowdhury is on vacation), and ultimately was admitted here yesterday. She reports that her LUE is painful and they had done a doppler in [place] that was negative. Here she's had a Doppler RLE that was negative, and X-ray confirms osteo distal phalanx of R great toe. Her WBC was slightly elevated, but her lactate and procalcitonin were negative. She's been started on levaquin and Vancomycin, and she reports improvement in the erythema. Blood cultures drawn here are pending. I called [facility] for wound culture results. What they sent was an anaerobic culture only collected 06/25 that had many mixed bacterial patricia on the gram stain and was negative for anaerobic bacteria. She relates that about 50 years ago, she had a reaction to PCN that was fever, rash and itching, but she can hardly recall this. Her PICC has one lumen that is not working. Medications Home Medications Medication Instructions Recorded Confirmed Type Protonix (Pantoprazole)40 mg 40 mg PO QAM 02/24/17 07/07/17 History tablet,delayed release empagliflozin 25 mg tablet 25 mg PO QAM 02/24/17 07/07/17 History hydralazine 25 mg tablet 25 mg PO QID 02/24/17 07/07/17 History lisinopril 20 mg tablet 20 mg PO BID tab 02/24/17 07/07/17 History trazodone 150 mg tablet 150 mg PO HS tab 02/24/17 07/07/17 History Aspirin [Aspirin EC] 81 mg PO HS 07/07/17 07/07/17 History Gabapentin [Gralise] 600 mg PO BID 07/07/17 07/07/17 History HydroCHLOROthiazide [Hydrodiuril] 12.5 mg PO WB 07/07/17 07/07/17 History Hydrocodone/APAP 5/325 [Dexter 1 - 2 tab PO Q6H PRN 07/07/17 07/07/17 History 5/325] Insulin NPH/Reg-Don't Expunge 25 unit SQ BID 07/07/17 07/07/17 History [Humulin 70/30] Metformin [Glucophage] 500 mg PO BIDWM 07/07/17 07/07/17 History Metoclopramide [Reglan] 5 mg PO PRN 07/07/17 07/07/17 History metroNIDAZOLE [Flagyl] 500 mg PO BID 07/07/17 07/07/17 History Allergies Allergy/AdvReac Type Severity Reaction Status Date / Time azithromycin [From Zithromax] Allergy UNKNOWN Verified 07/07/17 14:06 Influenza Virus Vaccines Allergy UNKNOWN Verified 07/07/17 14:06 morphine Allergy UNKNOWN Verified 07/07/17 14:06 Penicillins Allergy UNKNOWN Verified 07/07/17 14:06 Beta-Blockers AdvReac Severe heart Verified 07/07/17 14:07 (Beta-Adrenergic Bloc difficulties diltiazem [From Cardizem] AdvReac Severe BRADYCARDIA Verified 07/07/17 14:06 prednisone AdvReac Intermediate ANXIETY Verified 07/07/17 14:06 silver AdvReac Intermediate BLISTERS Verified 07/07/17 14:06 [From Tegaderm AG Mesh] chronotropic drugs AdvReac Severe SYNCOPE, Uncoded 02/24/17 10:35 BRADYCARDIA PFSH Patient Stated Medical History Migraine Yes: Hx of Peripheral Neuropathy Yes Dental Problems Yes Other HEENT Yes: Wears glasses Angina Yes Cardiac Arrhythmia Yes: Hx of bradycardia Heart Murmur Yes Hypertension Yes Bronchitis Yes: Hx of Pneumonia Yes: Hx of Other Respiratory Seasonal allergies Diabetes Mellitus Type 2 Yes Hx Kidney Stones Yes: Hx of Hx Urinary Tract Infection Yes: Hx of Anemia Yes: Hx of Other Hematologic Yes: Daily 81mg ASA Shingles Yes: Resolved Anesthesia Reactions Yes Depression Yes Fibroids Yes: Hx of Clinic Medical History Insomnia (Chronic Medical) Chronic bronchitis (Chronic Medical) Seasonal allergies (Chronic Medical) Hypercholesterolemia (Chronic Medical) RLS (restless legs syndrome) (Chronic Medical) Migraine (Chronic Medical) Diabetes mellitus (Chronic Medical) requiring insulin since 2004 HTN (hypertension) (Chronic Medical) Dyspepsia (Chronic Medical) Surgical History: Tonsillectomy . Right carpal tunnel release 1990. C- section and fibroidectomy 1990. Tumor at base of L thumb removed 1999. Rotator cuff repair 2007. Mass removed from xiphoid process (benign) 09/2016. 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 Absent: abdominal pain, nausea, vomiting - Genitourinary Genitourinary: Absent: dysuria - Musculoskeletal Musculoskeletal: Present: joint swelling (R great toe) Musculoskeletal Comments: swelling R ankle/foot - Integumentary/Breasts Integumentary: Absent: rash - Neurological Neurological: Absent: headache(s) Exam Vital Signs: Temperature 98.7 F 07/08/17 07:25 Pulse Rate 63 07/08/17 07:25 Respiratory Rate 16 07/08/17 07:25 Blood Pressure 129/66 07/08/17 07:25 Pulse Oximetry 94 07/08/17 07:25 Height/Weight/BMI: Height 1.5 m Weight 88.9 kg Body Mass Index 39.6 - Constitutional Present: no acute distress, well nourished, well developed - Routine HEENT Exam Head: Present: normocephalic, atraumatic Eye: Present: EOMI, PERRL ENT: Present: mucous membranes moist Comments: poor dentition - Routine Neck Exam Present: supple - Routine Respiratory Exam Present: CTA bilaterally. Absent: accessory muscle use - Routine Cardiovascular Exam Present: RRR - Routine Abdominal Exam Present: soft, normoactive bowel sounds, non distended. Absent: tenderness, rebound, guarding - Routine Extremities Exam Present: edema (RLE around ankle, 1-2+, no edema LLE). Absent: cyanosis, clubbing Comments: LUE PICC at the antecubital fossa - Routine Skin Exam Present: intact, erythema (R great toe, not extending to foot), wounds (distal aspect R great toe with dry appearing eschar, no fluctuance or purulence). Absent: rash - Routine Neurological Exam Present: alert, oriented X3, CN II-XII intact - Routine Psychiatric Exam Present: normal affect, normal thought process Results - Labs CBC & Chem 7: 07/08/17 04:42 07/08/17 04:42 Impression: Osteomyelitis R great toe distal phalanx, with associated RLE cellulitis, improving Leukocytosis Worsening/recurrence of cellulitis on ceftriaxone DM II, IR, with peripheral neuropathy HTN PCN allergy in remote past Recommendation: Recommend continuing Vancomycin alone for now. Her PICC will be evaluated by the Infusion team. It might need to be replaced. Currently, I don't see anything that indicates she needs surgery. I would recommend changing to Daptomycin 6mg/kg IV daily on discharge for outpatient therapy. She will need 6 weeks of IV antibiotics. If she is discharged before Tuesday, I'd be happy to see her in follow up in clinic.
--- NOTE | 2017-07-08 12:23 | Progress Note ---
<Domi Moses - Last Filed: 07/08/17 12:20> - Date 07/08/17 Subjective: Patient is seen today sitting up in chair eating breakfast. She reports she is feeling better. Her pain is much less, although, at the present time she rates it 5/10, but she hasn't had pain medicine since just after midnight. Her appetite is good. No fever or chills. No chest pain or shortness of breath. Objective Vital signs: Temperature 98.7 F 07/08/17 07:25 Pulse Rate 63 07/08/17 07:25 Respiratory Rate 16 07/08/17 07:25 Blood Pressure 129/66 07/08/17 07:25 Pulse Oximetry 94 07/08/17 07:25 Height/Weight/BMI: Height 1.5 m Weight 88.9 kg Body Mass Index 39.6 - Constitutional Present: no acute distress, well nourished, well developed - Routine HEENT Exam Head: Present: normocephalic, atraumatic - Routine Respiratory Exam Present: CTA bilaterally. Absent: wheezes - Routine Cardiovascular Exam Present: RRR, S1, S2, murmur (grade 1-2) - Routine Abdominal Exam Present: soft, normoactive bowel sounds, non distended. Absent: tenderness - Routine Extremities Exam Present: edema (SCDs actively running. The right one was removed and shows minimal swelling to the right lower extremity, much improved from yesterday. She has 2+ swelling around ankle area (likely related to SCDs) and 1+ in the foot.), normal capillary refill Comments: Right great toe still shows some erythema and swelling. Scab to the plantar surface. - Routine Skin Exam Present: dry, warm - Routine Neurological Exam Present: alert, oriented X3, CN II-XII intact - Routine Lymphatic Exam Lymphatic: Absent: adenopathy - Routine Psychiatric Exam Present: normal affect, cooperative Results - Labs CBC & Chem 7: 07/08/17 04:42 07/08/17 04:42 Microbiology Results: Cultures from hospitalization and [facility]: Blood cultures obtained 06/25 and 06/27 negative. Wound culture from 06/25 had many GPC in clusters and few GPR, it grew moderate growth of MSSA Assessment and Plan (1) Osteomyelitis of toe of right foot Status: Acute (2) Hypercholesterolemia Status: Chronic (3) Diabetes mellitus Problem details: requiring insulin since 2004 Status: Chronic (4) HTN (hypertension) Status: Chronic Assessment and Plan: Impression Osteomyelitis-right great toe Diabetes mellitus -type II (hemoglobin A1C 7.6 in 02/26) requiring insulin since 2004 Leukocytosis-likely related to osteomyelitis Diabetic peripheral neuropathy HTN (hypertension) Insomnia History of Chronic bronchitis Seasonal allergies Hypercholesterolemia RLS (restless legs syndrome)-quiescent Migraine headaches GERD Recurrent chest pain and hypotensive episodes-unknown etiology Plan She has had some improvement with vancomycin. Dr. Austin evaluated the patient today and recommends continuing vancomycin alone for now. On discharge, Dr. Austin recommends changing to daptomycin 6 mg/kg IV daily for outpatient therapy. She will need 6 weeks of IV antibiotics total. Pain is controlled with p.o. Maunie. Infusion therapy will evaluate her PICC line as it may need replaced. Hospital Course Summary Disclaimer: The visit summary below is not to be considered part of the above Progress Note. Hospital Course: Impression Osteomyelitis-right great toe Diabetes mellitus -type II (A1C 7.6 in 02/26) requiring insulin since 2004 Leukocytosis-likely related to osteomyelitis Diabetic peripheral neuropathy HTN (hypertension) Insomnia History of Chronic bronchitis Seasonal allergies Hypercholesterolemia RLS (restless legs syndrome)-quiescent Migraine headaches GERD Recurrent chest pain and hypotensive episodes-unknown etiology 07/07/17-hospital admission Admit to inpatient status under the hospitalist team, Dr. Lindsey attending, for IV antibiotics and pain control for osteomyelitis. It is expected that her stay will exceed 2 overnights given she has failed outpatient treatment with IV antibiotics. Pharmacy consult for vancomycin dosing. Levaquin 750qd. ID consult placed. Have requested records from [facility] and emergency room. Based on patient's report, it sounds like they had done cultures there. Continue home insulin dosing and check ac hs Accu-Cheks. Will adjust insulin as needed. Continue metformin and empagliflozin. Continue trazodone at bedtime for insomnia. Continue lisinopril, hydralazine, and hydrochlorothiazide for hypertension. Continue gabapentin 600 mg twice a day for neuropathic pain. Continue pantoprazole every morning for GERD. Continue citalopram and topiramate for mood. Continue isosorbide mononitrate ER daily for angina. She reports that she uses sublingual nitroglycerin, but hasn't used in the past month. Lovenox and SCDs for DVT prophylaxis. Case discussed with Dr. Lindsey. Patient requests to be full code. Upon discharge, patient's care to return to her PCP, Dr. Chowdhury. 07/08/17 She has had some improvement with vancomycin. Dr. Austin evaluated the patient today and recommends continuing vancomycin alone for now. On discharge, Dr. Austin recommends changing to daptomycin 6 mg/kg IV daily for outpatient therapy. She will need 6 weeks of IV antibiotics total. Pain is controlled with p.o. Maunie. Infusion therapy will evaluate her PICC line as it may need replaced. <Jeff Lindsey P - Last Filed: 07/11/17 19:20> - Date 07/11/17 Objective Vital signs: Temperature 97.2 F 07/09/17 08:21 Pulse Rate 64 07/09/17 08:21 Respiratory Rate 16 07/09/17 08:21 Blood Pressure 135/66 07/09/17 08:21 Pulse Oximetry 93 07/09/17 08:21 Height/Weight/BMI: Height 4 ft 11 in Weight 89.1 kg Body Mass Index 39.6 Results - Labs CBC & Chem 7: 07/08/17 04:42 07/09/17 07:31 Assessment and Plan (1) Diabetes mellitus Problem details: requiring insulin since 2004 Status: Chronic (2) Osteomyelitis of toe of right foot Status: Acute Assessment and Plan: Seen and examined patient on same day as the above note. Agree with history, physical, assessment and plan. Comprehensive physical findings correlate to the above note. Physical exam is fairly benign. Never any fluid discharge from the toe. Moderate redness around the portion of the foot is resolving. I've talked with Dr. Austin on the daptomycin dosing last night. Documented on [employer] speech to text. Efforts to correct speech recognition errors performed, but variation may exist Hospital Course Summary Disclaimer: The visit summary below is not to be considered part of the above Progress Note.
[2017-07-08] MEDS ORDERED: PNEUMOCOCCAL 13 VACCINE 0.5ml INJECTION IM ONE (12:31)
[2017-07-08] MEDS ORDERED: PNEUMOCOCCAL VAC ADMIN CHARGE INJ ONE (14:00)
--- NOTE | 2017-07-08 16:48 | XRay Report ---
Indication: check picc placement Procedure: XR chest 1V: Encounter: Initial Comparison: None Technique: A single AP chest radiograph was obtained. Findings: Life support devices: Left PICC in place with tip in the mid SVC. Lungs and airways: Normal lung volumes. No focal airspace consolidation. Normal pulmonary vasculature. Pleura: No pleural effusion or pneumothorax. Heart and mediastinum: Cardiomegaly. The great vessels of the thorax are within normal limits. Osseous structures and soft tissues: No acute osseous abnormality is seen. Impression: Left PICC in place with tip in the mid SVC. .
[2017-07-08] MEDS: ASPIRIN *EC* 81 MG TABLET PO SCH (21:58)
[2017-07-08] MEDS: TRAZODONE 50 MG TABLET PO SCH (21:58)
[2017-07-08] MEDS ORDERED: HYDROMORPHONE 2 MG/ML INJECTION IVP PRN (22:20)
[2017-07-09] MEDS: SALINE FLUSH 10ml SYRINGE IVF PRN ×2 (00:14→01:26)
[2017-07-09] MEDS: ISOSORBIDE MONONITRATE ER 30 MG TABLET PO SCH (06:09)
[2017-07-09] MEDS: PANTOPRAZOLE 40 MG TABLET PO SCH (06:09)
[2017-07-09 08:23] VITALS: BP 135/66; PULSE 64; RESP 16; TEMP 97.2; O2SAT 93
[2017-07-09] MEDS: HYDRALAZINE 25 MG TABLET PO SCH ×2 (08:27→12:03)
[2017-07-09] MEDS: LISINOPRIL 20 MG TABLET PO SCH (08:27)
[2017-07-09] MEDS: TOPIRAMATE 25 MG TABLET PO SCH (08:27)
[2017-07-09] MEDS: METFORMIN 500 MG TABLET PO SCH (08:27)
[2017-07-09] MEDS: EMPAGLIFLOZIN 10 MG TABLET PO SCH (08:28)
[2017-07-09] MEDS: GABAPENTIN 600 MG TABLET PO SCH (08:28)
[2017-07-09] MEDS: CITALOPRAM 40 MG TABLET PO SCH (08:28)
[2017-07-09] MEDS: INSULIN NPH/REG 70/30 INJECTION SQ SCH (08:28)
--- NOTE | 2017-07-09 09:06 | Pharmacy Consult-Antibiotics ---
Pharmacy Consult-Vancomycin - Laboratory Information WBC 10.2 T/MM3 (4.5-11.0) 07/08/17 04:42 BUN 12.0 MG/DL (7-17) 07/08/17 04:42 Creatinine 0.7 MG/DL (0.7-1.2) 07/09/17 07:31 Procalcitonin < 0.05 NG/ML 07/07/17 14:56 Vancomycin Trough 22.46 UG/ML (15-20) H* 07/09/17 07:31 - Consult Information VANCOMYCIN CONSULT: Vancomycin Trough = 22.46 mcg/ml. Today's SCr = N/A. Will reduce Vancomycin to 1,250 mg IV q12hrs. Trough level of 16 is expected with this dose. Will continue to monitor and make adjustments accordingly. Thank you.
--- NOTE | 2017-07-09 14:16 | Discharge Summary ---
<Linsey Ceja D - Last Filed: 07/09/17 14:13> Discharge Information Date of admission: 07/07/17 16:48 Anticipated date of discharge: 07/09/17 Attending Physician: Jeff Lindsey MD Primary care physician: Boone Chowdhury MD Consults: Consulting Provider: Rekha Austin - Discharge Diagnosis (1) Diabetes mellitus Status: Chronic (2) Osteomyelitis of toe of right foot Status: Acute Osteomyelitis R great toe distal phalanx, with associated RLE cellulitis, improving - Laboratory Labs: 07/08/17 04:42 07/09/17 07:31 - Microbiology Blood cultures drawn in [place] on 06/25/17 and 06/27/17 were negative. Repeat blood culture on 07/07/17 at [facility] were negative after 1 day. Wound culture from 06/25/17 had many gram-positive cocci in clusters and few gram-positive rods, it grew moderate growth of MSSA. - Radiology Radiology: Type of Exam(s): XR foot RT min 3V FINDINGS: The osseous structures of the right foot are primarily of normal density and contour maintaining normal anatomic alignment at the articular surfaces. There is focal destructive changes involving the distal tuft of the first distal phalanx. There is associated soft tissue swelling about the right great toe most consistent with and associated cellulitis. There are a few tiny radiopaque density seen on the skin surface of the distal plantar aspect of the right great toe which may represent radiopaque foreign bodies/dirt on the skin surface. There is no obvious subcutaneous emphysema. IMPRESSION: 1. Focal destructive changes involving the distal tuft of the first distal phalanx consistent with osteomyelitis. 2. There is associated right great toe cellulitis. 3. Tiny radiopaque densities plantar skin surface of the right great toe which may represent radiopaque foreign bodies/dirt, correlate clinically. Type of Exam(s): US venous doppler LE RT IMPRESSION: Negative venous ultrasound of the right lower extremity. History of Present Illness HPI: Patient is a 56-year-old diabetic female who presents to emergency room today to follow-up on worsening right great toe cellulitis. She has a history of hospitalization at [facility] from June 25 through June 30. She states she was given vancomycin during her hospitalization and was dismissed on daily Rocephin injections she was receiving through her PICC line. During her hospitalization she reports the toe infection was much improved. Since she has been home and doing the daily Rocephin treatment, her symptoms have worsened. She reports she has also been taking Flagyl. She was in to see Dr. Chowdhury's PA for hospital follow up and was sent back to [place] ER for treatment as her symptoms were worsening. Patient reports last night in the ER she received a dose of vancomycin, which she thinks helped her symptoms, and also had cultures taken and some labs drawn. In the ER, her white blood cell count was elevated at 11.5. Chloride was 110 and blood sugar is 178, otherwise CMP was normal. Her lactate and procalcitonin were both normal. She's been afebrile. Has had no tachycardia or hypotension. She still has a PICC line in the left arm. She reports she's had trouble with her PICC line the last few days. She's also been having pain in that arm and had venous Doppler performed last night in the [place] ER. She reports that was negative. Right foot x-ray today showed focal destructive changes involving the distal tuft of the first distal phalanx consistent with osteomyelitis and associated right great toe cellulitis. Venous Doppler of the right lower extremity today was negative. Patient reports her pain has significantly worsened over the past 24 hours. Gradually over this past week her symptoms have been increasing, specifically increasing swelling and redness and pain. She reports today in the ER her pain was 9/10. She reports she has taken [place] and this did not help her pain. She had Dilaudid 0.5 mg IV in the ER and this brought her pain down to 5/10. Of note, patient reports that in November, following removal of a benign mass from her xiphoid process, she began having chest pain. She was worked up with heart cath which was negative. She states she was given 1 dose of a beta smitha and she spiked a high blood pressure and then became hypotensive and bradycardic. She gives a history of needing to be externally paced while being [employer] to [place]. She states she had an internal pacer placed for a week, but then it was removed. She reports she continues to have episodes of low blood pressures and low pulse with no definitive etiology. She was to have tilt table testing performed next week but has canceled it since she is being hospitalized. Objective Vital signs: Temperature 97.2 F 07/09/17 08:21 Pulse Rate 64 07/09/17 08:21 Respiratory Rate 16 07/09/17 08:21 Blood Pressure 135/66 07/09/17 08:21 Pulse Oximetry 93 07/09/17 08:21 Height/Weight/BMI: Height 1.5 m Weight 89.1 kg Body Mass Index 39.6 - Constitutional Present: no acute distress, well nourished, well developed - Routine HEENT Exam ENT: Present: mucous membranes moist - Routine Respiratory Exam Present: CTA bilaterally - Routine Cardiovascular Exam Present: RRR, S1, S2, murmur - Routine Abdominal Exam Present: soft, non tender - Routine Extremities Exam Present: edema (B/L LE) - Routine Skin Exam Comments: Rt toe - mild erythema/swelling. - Routine Neurological Exam Present: alert, oriented X3 - Routine Psychiatric Exam Present: normal affect, normal thought process, cooperative Hospital Course This is a general summary of the patient's hospital course. For more details refer to the complete medical record. Hospital course: Impression Osteomyelitis-right great toe Diabetes mellitus -type II (A1C 7.6 in 02/26) requiring insulin since 2004 Leukocytosis-likely related to osteomyelitis - resolved Diabetic peripheral neuropathy HTN (hypertension) Insomnia History of Chronic bronchitis Seasonal allergies Hypercholesterolemia RLS (restless legs syndrome)-quiescent Migraine headaches GERD Recurrent chest pain and hypotensive episodes-unknown etiology Hospital course summary Junior was admitted to [facility] on 07/07/17. She was started on vancomycin plus Levaquin and Dr. Austin was consulted. She recommended discontinuing Levaquin based on cultures from [place], which showed MSSA. For discharge, she recommended changing to daptomycin 6 mg/kg IV daily for 6 weeks. Pneumonia PCV 13 vaccine was administered on 07/08/17. Her white count was slightly elevated on admission but this improved to normal range. By the following morning. Chemistry profiles remained stable. For the most part blood glucose was under good control, most under 180, on her home diabetic regimen. By hospital day #2, the hospitalist team, was seeing improvement with the vancomycin. She remained medically stable, and arrangements were made for her to have outpatient infusion with daptomycin in [place], starting in the morning of 07/10/17. Her early vancomycin dose on day of discharge was increased , therefore, she will not need to come back in for her second dose. Her PICC line has 1 lumen that is not working, and because of an allergy to Tegaderm, nurses have been using bio patch, stat lock, gauze and Medipore tape, which is changed on a daily basis. Recommend follow-up with a flight operations inspector for suggestions on how to offload the toe. No formal dressing instructions were needed for her osteomyelitis; simply watch for worsening signs of infection. Recommend follow- up with Dr. Chowdhury in the next week. We'll need to also call Dr. Austin office to arrange a follow-up appointment in 3-4 weeks. Prescription for Percocet was also provided at time of discharge. Time spent with patient: greater than 35 minutes Discharge Plan - Discharge Disposition Discharge Date: 07/09/17 Disposition: 01 Discharged Home, Self-Care *Condition: Stable *Reason For Visit: cellulitis R great toe, failed OP tx - Discharge Medications *Discharge Medications: New Oxycodone/Acetaminophen 5/325 [Percocet 5/325] 1 - 2 tab PO Q6H PRN #20 tab PRN Reason: Pain DAPTOmycin [Daptomycin] 500 mg IV DAILY 42 Days #42 vial Continue HydroCHLOROthiazide [Hydrodiuril] 12.5 mg PO WB Metformin [Glucophage] 500 mg PO BIDWM Insulin NPH/Reg-Don't Expunge [Humulin 70/30] 25 unit SQ BID Aspirin [Aspirin EC] 81 mg PO HS Gabapentin [Gralise] 600 mg PO BID Metoclopramide [Reglan] 5 mg PO PRN hydralazine 25 mg tablet 25 mg PO QID empagliflozin 25 mg tablet 25 mg PO QAM lisinopril 20 mg tablet 20 mg PO BID tab Protonix (Pantoprazole)40 mg tablet,delayed release 40 mg PO QAM trazodone 150 mg tablet 150 mg PO HS tab Celexa (citalopram) 40 mg tablet 40 mg PO DAILY #30 tab Topamax (topiramate) 25 mg tablet 25 mg PO BID #60 tab isosorbide mononitrate ER 30 mg tablet,extended release 24 hr 30 mg PO QAM # 90 tab Discontinued Hydrocodone/APAP 5/325 [[place] 5/325] 1 - 2 tab PO Q6H PRN PRN Reason: Pain metroNIDAZOLE [Flagyl] 500 mg PO BID - Discharge Packet/Instructions *Diet: Carbohydrate consistent, heart healthy, low sodium. *Activity: As tolerated. PICC instructions as previously provided. *Pain Management/Treatment: Percocent if needed for severe pain. *Wound Care: No specific wound care instructions for right toe osteomyelitis - monitor for signs of worsening infection. Additional Instructions: PICC line has 1 lumen that is not working, and because of an allergy to Tegaderm, nurses have been using bio patch, stat lock, gauze and Medipore tape, which is changed on a daily basis *Expected Signs/Symptoms: Pain to foot. Percocet may make you weak/dizzy so no driving after taking this medication. Percocet may also make you constipated - you might want to take an over the counter stool softener/laxative (ie Senna Plus, MiraLAX). Monitor for thrush (mouth sores). *Notify Physician if: Increased pain, fever, increased redness or swelling; shortness of breath; chest pain; dehydration; diarrhea; thrush; or any new concerns. *During Business Hours Contact: Contact [facility]. *After Business Hours Contact: Call [facility] at and ask to speak with the on-call provider for [facility]. *Pending Lab/Results: No Pending Lab - Referrals/Follow Up *Referrals/Follow Up: Boone Chowdhury MD [Family Provider] - 1 Week Rekha Austin MD [Physician] - 3 Weeks (call for appointment) - Patient Handouts Patient Handouts: Cellulitis (GEN) - Dismissal Complete Discharge Instructions are:: Complete <Jeff Lindsey - Last Filed: 07/11/17 19:32> Discharge Information Date of admission: 07/07/17 16:48 Attending Physician: Jeff Lindsey MD Primary care physician: Boone Chowdhury MD Consults: 07/07/17 18:11 Physician Consult [CONS] Routine Consulting Provider: Rekha Austin Reason For Exam: osteomyelitis Ordering Provider has Notified Literacy Specialist: Yes 07/07/17 18:16 Dietary Consult [CONS] Routine Comment: Reason For Exam: - Discharge Diagnosis (1) Diabetes mellitus Status: Chronic (2) Osteomyelitis of toe of right foot Status: Acute - Laboratory Labs: 07/08/17 04:42 07/09/17 07:31 Objective Vital signs: Temperature 97.2 F 07/09/17 08:21 Pulse Rate 64 07/09/17 08:21 Respiratory Rate 16 07/09/17 08:21 Blood Pressure 135/66 07/09/17 08:21 Pulse Oximetry 93 07/09/17 08:21 Height/Weight/BMI: Height 4 ft 11 in Weight 89.1 kg Body Mass Index 39.6 Hospital Course This is a general summary of the patient's hospital course. For more details refer to the complete medical record. Hospital course: Seen and examined patient on same day as the above note prior to discharge. Agree with history, physical, assessment and plan. Comprehensive physical findings correlate to the above note. Remains in good spirits with minimal symptoms. The foot is showing good improvement on the vancomycin and she will be released with daptomycin a single daily dosing. This is manageable for her as she works at [employer] and can have her infusions performed there. My appreciation to Dr. Austin for seeing this patient in hospital and following her up in clinic. Documented on [employer] speech to text. Efforts to correct speech recognition errors performed, but variation may exist Addendum entered and electronically signed by Linsey Ceja APRN 07/09/17 15: 12: NOTE: RN at [facility] was able to flush both lumens of PICC without difficulty. Lumens were flushed with heparin and both were functioning at time of discharge.
== END 2017-07-09 16:04 | disposition home or self-care (01) | DRG 540 ==
LOC: ED 12:30 → MED 16:48
PROVIDERS: ADMIT Family Medicine; ATTEND Family Medicine